=== PATIENT | female | born 1950 | race Caucasian/White ===

== ENCOUNTER 2018-10-21 07:02 | Day surgery (SDC) | payer MEDICARE, OTHER ==
[~2018-10-21 07:02] MED LIST: Lactated Ringers 1,000 ML IV SCH; Lidocaine 1%/Sod Bicarbonate in NS 8.4% 1 ML Syringe IDERM PRN; Midazolam 1 MG/ML 2 ML SDV ONE; Propofol 200 MG/20 ML SDV ONE; Sodium Chloride 0.9% 10 ML Syringe FLUSH PRN
--- NOTE | 2018-10-21 07:34 | PCM.PREANE ---
Preanesthetic Assessment - Anesthesia/Transfusion/Family Hx Anesthesia History: Prior Anesthesia Without Reaction Family History of Anesthesia Reaction: No Transfusion History: No Prior Transfusion(s) - Review of Systems General: Other (chronic sinus congestion, takes mucinex, chronic back pain) Pulmonary: Other (sleep apnea, marijuana last smoked 3 days ago) Cardiovascular: Palpitations, Other (echo 2018 EF 70%. EKG 65 1avb, CAD Increased BP, states has angina, goes away with rest.neg stress test in jul 2018 ) Gastrointestinal: Abdominal Pain Neurological: Numbness, Tingling (in hands), Other (fibromyalgia) Other: Reports: Thyroid Problems, Depression, Anxiety - Physical Assessment NPO Status Date: 10/20/18 NPO Status Time: 22:00 Pulse: 78 O2 Sat by Pulse Oximetry: 95 Respiratory Rate: 16 Blood Pressure: 139/84 Weight: 66.4 kg ASA Class: 3 Mental Status: Alert & Oriented x3 Airway Class: Mallampati = 2 Dentition: Reports: Normal Dentition Thyro-Mental Finger Breadths: 3 Mouth Opening Finger Breadths: 3 ROM/Head Extension: Full Lungs: Clear to Auscultation, Normal Respiratory Effort, Decreased Breath Sounds - Allergies Allergies/Adverse Reactions: Allergies Allergy/AdvReac Type Severity Reaction Status Date / Time clarithromycin [From Biaxin] Allergy Redness, Verified 10/18/18 11:32 Skin Concerns latex Allergy Redness, Verified 10/18/18 11:32 Rash metformin AdvReac Vomiting Verified 10/20/18 10:58 propoxyphene [From Darvon] AdvReac Nauseous Verified 10/20/18 10:58 sertraline AdvReac Dizzy, Off Verified 10/20/18 10:58 Balance - Blood Blood Available: No Product(s) Available: None - Anesthesia Plan Pre-Op Medication Ordered: None - Acknowledgements Anesthesia Type Planned: MAC Pt an Appropriate Candidate for the Planned Anesthesia: Yes Alternatives and Risks of Anesthesia Discussed w Pt/Guardian: Yes Pt/Guardian Understands and Agrees with Anesthesia Plan: Yes PreAnesthesia Questionnaire HEENT History: Reports: Impaired Vision, Sinusitis Other HEENT History: States she has had radiation for sinus concerns in the 1979. - Wears eye glasses. Cardiovascular History: Reports: Angina, CAD, Hypertension Respiratory History: Reports: Sleep Apnea, Other (See Below) Other Respiratory History: Hyperinflation, Emphysema. Chronic cough "with Losartan" as reported by patient. Gastrointestinal History: Reports: Diverticulosis, Other (See Below) Other Gastrointestinal History: Gallstone, Fatty Liver Genitourinary History: Reports: Other (See Below) Other Genitourinary History: "I have blood in my urine and probably have for one year". States she is following up with her urologist. Patient also reports Kidney Stones, Cervical Dysplasia, and Cyst on both kidneys. Musculoskeletal History: Reports: Back Pain, Chronic, Other (See Below) Other Musculoskeletal History: Fibromyalgia, Collar Bone Fracture to the Left, Right Ankle Fracture, Left Wrist Fracture Neurological History: Reports: Concussion, Head Trauma, Vertigo, Other (See Below) Other Neuro History: Patient reports "several head injuries". 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 Psychiatric History: Reports: Anxiety, Depression Endocrine/Metabolic History: Reports: Hypothyroidism Hematologic History: Reports: Anemia Oncologic (Cancer) History: Reports: Other (See Below) Other Oncologic History: Cervical Dysplasia "Level 4" -- No chemo or radiation, but did have hysterectomy. Dermatologic History: Reports: Eczema - Past Surgical History HEENT Surgical History: Reports: Tonsillectomy Cardiovascular Surgical History: Reports: Other (See Below) Other Cardiovascular Surgeries/Procedures: Heart Catheterization with 2 stents Respiratory Surgical History: Reports: None GI Surgical History: Reports: Appendectomy, Colon Female Surgical History: Reports: Hysterectomy Endocrine Surgical History: Reports: None Neurological Surgical History: Reports: None Musculoskeletal Surgical History: Reports: Other (See Below) Other Musculoskeletal Surgeries/Procedures:: Left Foot Surgery Oncologic Surgical History: Reports: None Dermatological Surgical History: Reports: None - SUBSTANCE USE Smoking Status *Q: Former Smoker Recreational Drug Use History: Yes Recreational Drug Type: Reports: Marijuana/Hashish - HOME MEDS Home Medications: Home Meds Ascorbic Acid [Vitamin C] 5,000 mg PO DAILY 10/18/18 [History] Aspirin [Low Dose Aspirin EC] 81 mg PO DAILY 10/18/18 [History] Biotin 2,000 mg PO DAILY 10/18/18 [History] Cholecalciferol (Vitamin D3) [Vitamin D3] 4,000 unit PO DAILY 10/18/18 [History] Cholecalciferol (Vitamin D3) [Vitamin D3] 4,000 unit PO DAILY 10/18/18 [History] Cyanocobalamin (Vitamin B-12) [Vitamin B12] 15,000 mcg PO DAILY 10/18/18 [ History] Cyclobenzaprine [Flexeril] 10 mg PO TID PRN 10/18/18 [History] Fluticasone Propionate [Flonase] 2 spray NASBOTH DAILY 10/18/18 [History] LORazepam 0.5 mg PO DAILY PRN 10/18/18 [History] Levothyroxine [Synthroid] 100 mcg PO DAILY 10/18/18 [History] Losartan [Cozaar] 50 mg PO DAILY 10/18/18 [History] Magnesium Oxide 250 mg PO DAILY 10/18/18 [History] Meloxicam [Mobic] 15 mg PO DAILY 10/18/18 [History] Mucous Relief Dm 1 tab PO BID PRN 10/18/18 [History] Multivitamin [Daily Multiple Vitamin] 1 tab PO DAILY 10/18/18 [History] Potassium 5 tab PO DAILY 10/18/18 [History] Rosuvastatin [Crestor] 10 mg PO BEDTIME 10/18/18 [History] Turmeric Root Extract [Turmeric Curcumin] 1 tab PO DAILY 10/18/18 [History] Ubidecarenone [Co Q-10] 100 mg PO DAILY 10/18/18 [History] Vitamin E 1,200 unit PO DAILY 10/18/18 [History] - CURRENT (IN HOUSE) MEDS Current Meds: Current Medications Lactated Ringer's (Ringers, Lactated) 1,000 mls @ 125 mls/hr IV ASDIRECTED BALBINA Stop: 10/21/18 23:00 Lidocaine/Sodium Bicarbonate (Buffered Lidocaine 1% In Ns 8.4%) 0.25 ml IDERM ONETIME PRN PRN Reason: Prior to IV Start Stop: 10/21/18 18:00 Sodium Chloride (Saline Flush) 10 ml FLUSH ASDIRECTED PRN PRN Reason: Keep Vein Open Stop: 10/21/18 18:00 Discontinued Medications Midazolam HCl (Versed 1 Mg/Ml) Confirm Administered Dose 2 mg .ROUTE .STK-MED ONE Stop: 10/21/18 06:58 Propofol (Diprivan 20 Ml) Confirm Administered Dose 400 mg .ROUTE .STK-MED ONE Stop: 10/21/18 06:58
[2018-10-21] MEDS ORDERED: Propofol 200 MG/20 ML SDV ONE (08:49)
--- NOTE | 2018-10-21 09:13 | PCM.OPNOTE ---
- General Post-Op/Procedure Note Date of Surgery/Procedure: 10/21/18 Operative Procedure(s): colonoscopy to cecum Pre Op Diagnosis: screening colonoscopy Post-Op Diagnosis: Same Anesthesia Technique: MAC Primary Surgeon: Florentin Jesus EBL in mLs: 0 Complications: None Condition: Good
--- NOTE | 2018-10-21 09:13 | PCM48HPAN ---
Post Anesthesia Note - EVALUATION WITHIN 48HRS OF ANESTHETIC Vital Signs in Normal Range: Yes Patient Participated in Evaluation: Yes Respiratory Function Stable: Yes Airway Patent: Yes Cardiovascular Function Stable: Yes Hydration Status Stable: Yes Pain Control Satisfactory: Yes Nausea and Vomiting Control Satisfactory: Yes Mental Status Recovered: Yes Pulse Rate: 64 SaO2: 99 Resp Rate: 16 Temperature: 36.7 C Blood Pressure: 132/80
--- NOTE | 2018-10-22 06:40 | OR ---
DATE OF OPERATION: 10/21/2018 SURGEON: Florentin Jesus MD PREOPERATIVE DIAGNOSIS: Screening colonoscopy. POSTOPERATIVE DIAGNOSIS: Screening colonoscopy. OPERATION PERFORMED: Colonoscopy to cecum. FINDINGS: Moderate sigmoid diverticulosis. There were no angiodysplasias, neoplasias, large tumor masses, ulcerations, or notable hemorrhoids. ANESTHESIA: Procedure done under IV sedation. RECOMMENDATION: Repeat colonoscopy in 10 years. DESCRIPTION OF PROCEDURE: The patient was taken to the endoscopy room, placed in a supine position, connected to monitoring equipment, given IV sedation. The patient placed in left lateral position. Perianal area was inspected and was normal. Rectal exam showed good sphincter tone. A video Olympus colonoscope was then introduced into the rectum and threaded up without problem to the cecum, where the appendicular orifice and ileocecal valve were noted. Prep was excellent. [place] Cleansing Score grade A. The scope was slowly withdrawn showing the cecum, ascending colon, transverse colon, descending colon, sigmoid colon, and rectum. The patient tolerated the procedure, sent to the recovery room in a stable condition, will be followed up as needed in the clinic. ESTIMATED BLOOD LOSS: MMODAL /[id number]
== END 2018-10-21 11:09 | disposition home or self-care (01) ==
LOC: JD.SDS 07:02
PROVIDERS: ATTEND Surgery
DX: Z12.11 Encounter for screening for malignant neoplasm of colon (principal); K57.30 Diverticulosis of large intestine without perforation or abscess without bleeding; I10 Essential (primary) hypertension; I25.10 Atherosclerotic heart disease of native coronary artery without angina pectoris; E03.9 Hypothyroidism, unspecified; E78.00 Pure hypercholesterolemia, unspecified; J43.9 Emphysema, unspecified; F41.9 Anxiety disorder, unspecified; F32.9 Major depressive disorder, single episode, unspecified; G47.30 Sleep apnea, unspecified; M79.7 Fibromyalgia; R73.03 Prediabetes; Z90.49 Acquired absence of other specified parts of digestive tract; Z88.8 Allergy status to other drugs, medicaments and biological substances; Z88.1 Allergy status to other antibiotic agents; Z91.040 Latex allergy status; Z95.5 Presence of coronary angioplasty implant and graft; Z87.891 Personal history of nicotine dependence; Z79.51 Long term (current) use of inhaled steroids; Z79.1 Long term (current) use of non-steroidal anti-inflammatories (NSAID); Z79.82 Long term (current) use of aspirin; Z79.899 Other long term (current) drug therapy
CPT/HCPCS: G0121; J2250; J2704; J7120

== ENCOUNTER 2019-08-27 13:20 | Emergency (ER) | payer MEDICARE, OTHER ==
--- NOTE | 2019-08-27 14:24 | EDM.PDOC ---
ED HPI GENERAL MEDICAL PROBLEM - General Chief Complaint: Chest Pain Stated Complaint: CHEST PAIN Time Seen by Provider: 08/27/19 14:18 Source of Information: Reports: Patient, Family (daughter) History Limitations: Reports: No Limitations - History of Present Illness INITIAL COMMENTS - FREE TEXT/NARRATIVE: 68-year-old female is a the ED with some precordial chest discomfort off and on for the last 2 days. He also felt like she was running a fever this morning and checked her temperature and found it to be 99.9. She did take some Tylenol for this. Of note the patient underwent triple bypass surgery on July 21 and did have 4 block vessels but they were only able to get at 311. She's had 2 previous stent placements in 2001. Her current medication list. She went to physiotherapy to work out at cardiac rehabilitation and they would not allow her to purchase a due to reports of chest pain until she was cleared from the ED. She is just doing lower extremity exercise program. She denies cough or sputum production. Denies sore throat. Denies any genitourinary complaints. She was constipated but did get her bowels working and they've been working quite regularly. He is currently sleeping half sitting up on pillows since her surgery. Doesn't think that she is any more short of breath than usual. She denies ever having a heart attack. Onset: Gradual (Aware of fever today she reports 99.9. Currently is 36.8 in the ED. Left precordial chest discomfort for the last 2 days), Other Duration: Intermittent ( more or less off and on.), Waxing/Waning Location: Reports: Chest (Left precordial chest discomfort for the last 2 days off and on.), Other (Spiked a fever of 99.9 this morning according to her thermometer at home.) Quality: Reports: Pressure Severity: Mild Improves with: Reports: None Worsens with: Reports: None Context: Reports: Other (Patient had triple bypass surgery carried out July 21 without complication.). Denies: Activity, Exercise, Lifting, Sick Contact, Trauma Associated Symptoms: Reports: Chest Pain (Occasional chest pain at the insertion site but left precordial chest discomfort for the last 2 days.), Malaise. Denies: Confusion ( She is currently in cardiac rehabilitation doing lower extremity exercises for the last 2 weeks.), Cough, cough w sputum, Diaphoresis, Fever/Chills, Headaches, Loss of Appetite, Nausea/Vomiting, Rash, Seizure, Shortness of Breath ( It's been more or less constant.), Syncope Treatments [employer]: Reports: Acetaminophen, Aspirin (For fever relief today. When every day.) Left Chest Pain Score (Numeric/FACES): 7 - Related Data Allergies Allergy/AdvReac Type Severity Reaction Status Date / Time clarithromycin [From Biaxin] Allergy Redness, Verified 08/27/19 13:33 Skin Concerns latex Allergy Redness, Verified 08/27/19 13:33 Rash metformin AdvReac Vomiting Verified 08/27/19 13:33 propoxyphene [From Darvon] AdvReac Nauseous Verified 08/27/19 13:33 sertraline AdvReac Dizzy, Off Verified 08/27/19 13:33 Balance Home Meds: Home Meds Ascorbic Acid [Vitamin C] 5,000 mg PO DAILY 10/18/18 [History] Aspirin [Low Dose Aspirin EC] 81 mg PO DAILY 10/18/18 [History] Biotin 2,000 mg PO DAILY 10/18/18 [History] Cholecalciferol (Vitamin D3) [Vitamin D3] 4,000 unit PO DAILY 10/18/18 [History] Cholecalciferol (Vitamin D3) [Vitamin D3] 4,000 unit PO DAILY 10/18/18 [History] Cyanocobalamin (Vitamin B-12) [Vitamin B12] 15,000 mcg PO DAILY 10/18/18 [ History] Cyclobenzaprine [Flexeril] 10 mg PO TID PRN 10/18/18 [History] Fluticasone Propionate [Flonase] 2 spray NASBOTH DAILY PRN 10/18/18 [History] LORazepam 0.5 mg PO DAILY PRN 10/18/18 [History] Levothyroxine [Synthroid] 100 mcg PO DAILY 10/18/18 [History] Losartan [Cozaar] 50 mg PO DAILY 10/18/18 [History] Magnesium Oxide 250 mg PO DAILY 10/18/18 [History] Meloxicam [Mobic] 15 mg PO DAILY 10/18/18 [History] Mucous Relief Dm 1 tab PO BID PRN 10/18/18 [History] Multivitamin [Daily Multiple Vitamin] 1 tab PO DAILY 10/18/18 [History] Potassium 5 tab PO DAILY 10/18/18 [History] Rosuvastatin [Crestor] 10 mg PO BEDTIME 10/18/18 [History] Turmeric Root Extract [Turmeric Curcumin] 1 tab PO DAILY 10/18/18 [History] Ubidecarenone [Co Q-10] 100 mg PO DAILY 10/18/18 [History] Vitamin E 1,200 unit PO DAILY 10/18/18 [History] Cefdinir [Omnicef] 300 mg PO BID #14 cap 08/27/19 [Rx] Furosemide [Lasix] 40 mg PO DAILY #30 tablet 08/27/19 [Rx] Magnesium Chloride [Slow-Mag] 71.5 mg PO BID #60 tablet.dr 08/27/19 [Rx] Potassium Chloride 20 meq PO DAILY #30 tablet.er 08/27/19 [Rx] Past Medical History HEENT History: Reports: Impaired Vision, Sinusitis Other HEENT History: States she has had radiation for sinus concerns in the 1979. - Wears eye glasses. Cardiovascular History: Reports: Angina, Bypass (2. Bypass surgery carried out June 2019. She was told she had 4 blockages but one was a minute not amenable to bypass.), CAD, High Cholesterol, Hypertension, Stents (2 stents placed in 2001. She denies CO prior to this.). Denies: Heart Failure, CO Respiratory History: Reports: Sleep Apnea, Other (See Below) Other Respiratory History: Hyperinflation, Emphysema. Chronic cough "with Losartan" as reported by patient. Gastrointestinal History: Reports: Diverticulosis, Other (See Below) Other Gastrointestinal History: Gallstone, Fatty Liver Genitourinary History: Reports: Other (See Below) Other Genitourinary History: "I have blood in my urine and probably have for one year". States she is following up with her urologist. Patient also reports Kidney Stones, Cervical Dysplasia, and Cyst on both kidneys. Musculoskeletal History: Reports: Back Pain, Chronic, Other (See Below) Other Musculoskeletal History: Fibromyalgia, Collar Bone Fracture to the Left, Right Ankle Fracture, Left Wrist Fracture Neurological History: Reports: Concussion, Head Trauma, Vertigo, Other (See Below) Other Neuro History: Patient reports "several head injuries". 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 Psychiatric History: Reports: Anxiety, Depression Endocrine/Metabolic History: Reports: Hypothyroidism Hematologic History: Reports: Anemia Oncologic (Cancer) History: Reports: Other (See Below) Other Oncologic History: Cervical Dysplasia "Level 4" -- No chemo or radiation, but did have hysterectomy. Dermatologic History: Reports: Eczema - Past Surgical History HEENT Surgical History: Reports: Tonsillectomy Cardiovascular Surgical History: Reports: Other (See Below) Other Cardiovascular Surgeries/Procedures: Heart Catheterization with 2 stents. triple bypass Jul 21 2019 Respiratory Surgical History: Reports: None GI Surgical History: Reports: Appendectomy, Colon Female Surgical History: Reports: Hysterectomy Endocrine Surgical History: Reports: None Neurological Surgical History: Reports: None Musculoskeletal Surgical History: Reports: Other (See Below) Other Musculoskeletal Surgeries/Procedures:: Left Foot Surgery Oncologic Surgical History: Reports: None Dermatological Surgical History: Reports: None Social & Family History - Caffeine Use Caffeine Use: Reports: Coffee Caffeine Use Comment: Coffee every morning. - Living Situation & Occupation Living situation: Reports: Single Occupation: Retired ED ROS GENERAL - Review of Systems Review Of Systems: See Below Constitutional: Reports: Fever, Chills (99.9 on her thermometer this morning.), Malaise, Weakness, Fatigue. Denies: Decreased Appetite, Weight Loss HEENT: Reports: Glasses Respiratory: Denies: Shortness of Breath, Wheezing, Pleuritic Chest Pain, Cough , Sputum Cardiovascular: Reports: Chest Pain, Blood Pressure Problem (Left precordial chest discomfort for the last 2 days.), Dyspnea on Exertion (Sometimes), Edema ( Vocational depending how long she's been sitting. She notes around her ankles). Denies: Claudication, Lightheadedness, Orthopnea Endocrine: Reports: Fatigue GI/Abdominal: Reports: Constipation : Reports: Frequency. Denies: Incontinence Musculoskeletal: Reports: No Symptoms, Other (Recovering from midline sternotomy incision with mild discomfort.) Skin: Reports: No Symptoms Neurological: Reports: No Symptoms Psychiatric: Reports: No Symptoms Hematologic/Lymphatic: Reports: No Symptoms Immunologic: Reports: No Symptoms ED EXAM, GENERAL - Physical Exam Exam: See Below General Appearance: Alert, WD/WN, No Apparent Distress, Other (Temperatures 36.8 at present. Pulse is 81 and sinuses pressured is 18 BP is 122/71 sats 95% on room air.) Eye Exam: Bilateral Eye: Normal Inspection Throat/Mouth: Normal Inspection, Normal Lips, Normal Teeth, Normal Oropharynx Head: Atraumatic, Normocephalic Neck: Normal Inspection, Supple, Non-Tender, Full Range of Motion. No: Lymphadenopathy (L), Lymphadenopathy (R) Respiratory/Chest: No Respiratory Distress, Lungs Clear, Normal Breath Sounds, No Accessory Muscle Use, Other (Midline sternotomy incision is healing up very well.) Cardiovascular: Normal Peripheral Pulses, Regular Rate, Rhythm, No Edema, No Gallop, No Murmur, No Rub Peripheral Pulses: 2+: Posterior Tibial (L), Posterior Tibial (R), Dorsalis Pedis (L), Dorsalis Pedis (R) GI/Abdominal: Normal Bowel Sounds, Soft, Non-Tender, No Organomegaly, No Mass, Pelvis Stable Back Exam: Normal Inspection, Full Range of Motion. No: CVA Tenderness (L), CVA Tenderness (R) Extremities: Normal Inspection, Normal Range of Motion, Non-Tender, No Pedal Edema Neurological: Alert, Oriented, CN II-XII Intact, Normal Cognition Psychiatric: Normal Affect, Normal Mood Skin Exam: Warm, Dry, Intact, Normal Color, No Rash EKG INTERPRETATION EKG Date: 08/27/19 Time: 01:30 Rhythm: NSR Rate (Beats/Min): 80 [place]: Normal P-Wave: Present QRS: Other (RSR prime wave in V1 to V3 compatible with right bundle branch block pattern with associated T-wave inversion from V1 to V6. Q waves in leads 3 and aVF compatible with an old inferior wall myocardial infarction.) ST-T: Other (T-wave inversion also noted in aVF and lead 2.) QT: Prolonged (Mildly prolonged.) EKG Interpretation Comments: Abnormal ECG Course - Vital Signs Last Recorded V/S: Last Vital Signs Temp 36.8 C 08/27/19 13:30 Pulse 81 08/27/19 13:30 Resp 18 08/27/19 13:30 BP 122/71 08/27/19 13:30 Pulse Ox 95 08/27/19 13:30 - Orders/Labs/Meds Orders: Active Orders 24 hr Category Date Time Status EKG 12 Lead [EKG Documentation Completion] [RC] STAT Care 08/27/19 13:48 Active EKG Documentation Completion [RC] STAT Care 12/04/19 14:20 Inactive Chest 1V Frontal [CR] Stat Exams 08/27/19 13:32 Taken DRUG SCREEN, URINE [URCHEM] Stat Lab 08/27/19 18:09 Ordered Labs: Laboratory Tests 08/27/19 08/27/19 08/27/19 Range/Units 13:39 13:39 13:39 WBC 7.38 (3.98-10.04) K/mm3 RBC 3.91 L (3.98-5.22) M/mm3 Hgb 11.4 (11.2-15.7) gm/dl Hct 35.9 (34.1-44.9) % MCV 91.8 (79.4-94.8) fl MCH 29.2 (25.6-32.2) pg MCHC 31.8 L (32.2-35.5) g/dl RDW Std Deviation 47.2 H (36.4-46.3) fL Plt Count 161 L (182-369) K/mm3 MPV 9.4 (9.4-12.3) fl Neut % (Auto) 79.3 H (34.0-71.1) % Lymph % (Auto) 10.2 L (19.3-51.7) % [place] % (Auto) 7.9 (4.7-12.5) % Eos % (Auto) 2.3 (0.7-5.8) Baso % (Auto) 0.3 (0.1-1.2) % Neut # (Auto) 5.86 (1.56-6.13) K/mm3 Lymph # (Auto) 0.75 L (1.18-3.74) K/mm3 [place] # (Auto) 0.58 H (0.24-0.36) K/mm3 Eos # (Auto) 0.17 (0.04-0.36) K/mm3 Baso # (Auto) 0.02 (0.01-0.08) K/mm3 PT 10.4 (9.7-12.0) SECONDS INR 0.95 APTT 26 (22-31) SECONDS Sodium 140 (136-145) mEq/L Potassium 3.5 (3.5-5.1) mEq/L Chloride 103 (98-107) mEq/L Carbon Dioxide 27 (21-32) mEq/L Anion Gap 13.5 (5-15) BUN 22 H (7-18) mg/dL Creatinine 1.1 H (0.55-1.02) mg/dL Est Cr Clr Drug Dosing 49.38 mL/min Estimated GFR (MDRD) 49 (>60) mL/min BUN/Creatinine Ratio 20.0 H (14-18) Glucose 166 H (80-115) mg/dL Calcium 8.7 (8.5-10.1) mg/dL Magnesium (1.8-2.4) mg/dl Total Bilirubin 0.8 (0.2-1.0) mg/dL AST 16 (15-37) U/L ALT 24 (14-59) U/L Alkaline Phosphatase 103 (46-116) U/L CK-MB (CK-2) (0-3.6) ng/ml Troponin I < 0.017 (0.00-0.056) ng/mL C-Reactive Protein (<1.0) mg/dL NT-Pro-B Natriuret Pep (0-125) pg/mL Total Protein 7.5 (6.4-8.2) g/dl Albumin 3.7 (3.4-5.0) g/dl Globulin 3.8 gm/dL Albumin/Globulin Ratio 1.0 (1-2) Urine Color (Yellow) Urine Appearance (Clear) Urine pH (5.0-8.0) Ur Specific [place] (1.005-1.030) Urine Protein (Negative) Urine Glucose (UA) (Negative) Urine Ketones (Negative) Urine Occult Blood (Negative) Urine Nitrite (Negative) Urine Bilirubin (Negative) Urine Urobilinogen (0.2-1.0) Ur Leukocyte Esterase (Negative) Urine RBC (0-5) /hpf Urine WBC (0-5) /hpf Ur Epithelial Cells (0-5) /hpf Calcium Oxalate Crystal (NONE) Urine Bacteria (FEW) /hpf Urine Mucus (FEW) /hpf 08/27/19 08/27/19 08/27/19 Range/Units 13:39 13:39 15:09 WBC (3.98-10.04) K/mm3 RBC (3.98-5.22) M/mm3 Hgb (11.2-15.7) gm/dl Hct (34.1-44.9) % MCV (79.4-94.8) fl MCH (25.6-32.2) pg MCHC (32.2-35.5) g/dl RDW Std Deviation (36.4-46.3) fL Plt Count (182-369) K/mm3 MPV (9.4-12.3) fl Neut % (Auto) (34.0-71.1) % Lymph % (Auto) (19.3-51.7) % [place] % (Auto) (4.7-12.5) % Eos % (Auto) (0.7-5.8) Baso % (Auto) (0.1-1.2) % Neut # (Auto) (1.56-6.13) K/mm3 Lymph # (Auto) (1.18-3.74) K/mm3 [place] # (Auto) (0.24-0.36) K/mm3 Eos # (Auto) (0.04-0.36) K/mm3 Baso # (Auto) (0.01-0.08) K/mm3 PT (9.7-12.0) SECONDS INR APTT (22-31) SECONDS Sodium (136-145) mEq/L Potassium (3.5-5.1) mEq/L Chloride (98-107) mEq/L Carbon Dioxide (21-32) mEq/L Anion Gap (5-15) BUN (7-18) mg/dL Creatinine (0.55-1.02) mg/dL Est Cr Clr Drug Dosing mL/min Estimated GFR (MDRD) (>60) mL/min BUN/Creatinine Ratio (14-18) Glucose (80-115) mg/dL Calcium (8.5-10.1) mg/dL Magnesium 1.6 L (1.8-2.4) mg/dl Total Bilirubin (0.2-1.0) mg/dL AST (15-37) U/L ALT (14-59) U/L Alkaline Phosphatase (46-116) U/L CK-MB (CK-2) < 0.5 (0-3.6) ng/ml Troponin I (0.00-0.056) ng/mL C-Reactive Protein 9.9 H* (<1.0) mg/dL NT-Pro-B Natriuret Pep 829 H (0-125) pg/mL Total Protein (6.4-8.2) g/dl Albumin (3.4-5.0) g/dl Globulin gm/dL Albumin/Globulin Ratio (1-2) Urine Color Dark yellow (Yellow) Urine Appearance Cloudy H (Clear) Urine pH 6.0 (5.0-8.0) Ur Specific [place] > or = 1.030 (1.005-1.030) Urine Protein 2+ H (Negative) Urine Glucose (UA) Negative (Negative) Urine Ketones Trace H (Negative) Urine Occult Blood 3+ H (Negative) Urine Nitrite Positive H (Negative) Urine Bilirubin 1+ H (Negative) Urine Urobilinogen 0.2 (0.2-1.0) Ur Leukocyte Esterase 1+ H (Negative) Urine RBC 30-40 H (0-5) /hpf Urine WBC 75-100 H (0-5) /hpf Ur Epithelial Cells 5-10 H (0-5) /hpf Calcium Oxalate Crystal Moderate H (NONE) Urine Bacteria Many H (FEW) /hpf Urine Mucus Not seen (FEW) /hpf Meds: Medications Discontinued Medications Generic Name Dose Route Start Last Admin Trade Name Freq PRN Reason Stop Dose Admin Furosemide 40 mg 08/27/19 15:48 08/27/19 15:58 Lasix PO 08/27/19 15:49 40 mg ONETIME ONE Administration - Radiology Interpretation Free Text/Narrative:: 68-year-old female presents to the ED with family members. She was to attend cardiac rehabilitation today but didn't feel well enough and reported to them that she drinks pain similar left precordial chest discomfort for the last 2 days. She had triple bypass surgery carried out July 21. For that she had 2 stents placed for coronary disease. She is no longer on Plavix she is only on baby aspirin daily. She denies feeling any more dyspneic than usual. She states this morning she spiked a temperature of 99.9 and took at acetaminophen for this. Currently she is afebrile in the ED. Lungs are clear to stage percussion no signs of infection were identified. ECG shows signs of old inferior wall myocardial infarction and a chronic right bundle branch block with T-wave inversion from V1 to the 5. Cannot rule out ischemia without another ECG to compare to. Plan she will have routine cardiac markers done routine labs including BMP and magnesium level. Chest x-ray as well. Urinalysis as well. - Re-Assessments/Exams Free Text/Narrative Re-Assessment/Exam: 08/27/19 14:35 chest x-ray shows normal cardiac silhouette. Slightly tortuous thoracic aorta. There appears to be some mild diffuse vascular congestion pattern. No pleural effusions evident. 08/27/19 15:43 White count is 7.38 auto differential is 79.3% neutrophils. Hemoglobin is 11.4 and hematocrit of 35.9 platelet count 161,000. PT is 10.4 with an INR of 0.95 PTT is 26. Sodium 140 with potassium of 3.5. Chloride 103 with a bicarbonate 27. Anion gap is 13.5 B1 is 22 with a creatinine of 1.1. Estimated GFR is 49. Glucose is 166 with a calcium of 8.7. Magnesium is slightly low at 1.6. Liver function is normal. CK-MB fraction is 0. Less than 0.5 more denies less than 0.017 C-reactive protein is 9.9 BNP is slightly elevated at 829 total protein is 7.5 with an albumin fraction of 3.7. So far she 's been unable to void. Going to give her Lasix 40 mg by mouth for her elevated BNP she claims that she did have a transient fever this morning. She's now complaining of some mild backache. Urinary tract infection needs to be ruled out. Her CRP is 9.9 and her differential suggests 80% neutrophils suggesting that she does have an underlying infective process. 08/27/19 18:22 Urinalysis is positive for infection. It is cloudy with 2+ proteinuria trace of ketones 3+ occult blood positive nitrates 1+ bilirubin and 1+ leukocyte esterase. There are 30-40 RBCs per high-power field and 75-100 WBCs per high-power field. I've to 10 epithelial cells suggesting upper infection. Moderate oxalate crystals and many bacteria. Urine culture has been ordered. Discussed the findings with the patient and the plan will be to place her on Bactrim double strength 1 tablet twice daily for the next 7 days. Departure - Departure Time of Disposition: 18:22 Disposition: Home, Self-Care 01 Condition: Fair Clinical Impression: Mild congestive heart failure, Hypomagnesemia, Hypokalemia Urinary tract infection Qualifiers: Urinary tract infection type: acute cystitis Prescriptions: Cefdinir [Omnicef] 300 mg PO BID #14 cap Furosemide [Lasix] 40 mg PO DAILY #30 tablet Magnesium Chloride [Slow-Mag] 71.5 mg PO BID #60 tablet. Potassium Chloride 20 meq PO DAILY #30 tablet.er Referrals: Micheline Angulo MD [Primary Care Provider] - Forms: ED Department Discharge Additional Instructions: Evaluation in the emergency him today in regards to some left-sided chest pains off and on over the last 2 days. An open heart surgery July 21 with triple bypass surgery. Lab work proved that there is some excessive fluid buildup in your lungs which we call mild congestive heart failure and is not unexpected after having open heart surgery. It is bad enough to require a diuretic or Lasix tablet 40 mg once daily every morning for the next couple of weeks and then have recheck to see if you need to continue it or not or we can reduce it to 20 mg daily. Expect makes the kidneys waste potassium and your potassium is already low normal at 3.5. You therefore need a potassium supplement called Slow -K 20 mg once daily usually in the morning. You found to have a low-grade fever for you recognized a spike in temperature and lab work finally showed a urinalysis that is positive for infection. You will need to take antibiotic Omnicef 300 mg twice daily for the next 7 days to clear up this infection. You also found to have a low serum magnesium level at 1.6. Magnesium is important for heart function. I therefore wrote a prescription for magnesium supplement called Slow-Mag one tablet twice daily. It is important to take your antibiotics at a completely different time than you take your potassium or magnesium supplement. At least a good hour to an hour and a half apart. No more physiotherapy her cardiac rehabilitation until Sunday next week. Follow-up with your personal care physician in 7 days time for repeat labs on kidney function and heart function. - My Orders Last 24 Hours: My Active Orders 08/27/19 13:32 Chest 1V Frontal [CR] Stat 08/27/19 13:48 EKG 12 Lead [EKG Documentation Completion] [RC] STAT 08/27/19 14:20 EKG Documentation Completion [RC] STAT 08/27/19 18:09 DRUG SCREEN, URINE [URCHEM] Stat - Assessment/Plan Last 24 Hours: My Active Orders 08/27/19 13:32 Chest 1V Frontal [CR] Stat 08/27/19 13:48 EKG 12 Lead [EKG Documentation Completion] [RC] STAT 08/27/19 14:20 EKG Documentation Completion [RC] STAT 08/27/19 18:09 DRUG SCREEN, URINE [URCHEM] Stat
[2019-08-27] MEDS ORDERED: Furosemide 40 MG Tab PO ONE (15:48)
--- NOTE | 2019-09-01 06:34 | CR ---
Chest: Portable view of the chest was obtained. Comparison: No prior chest x-ray. Heart size is normal. Tortuous thoracic aorta is seen. Lungs are clear with no acute parenchymal change. Previous sternotomy is noted. Deformity of the left clavicle from old healed fracture is noted. Impression: 1. Nothing acute is seen on portable chest x-ray. Diagnostic code #2 This report was dictated in [place] Standard Time
== END 2019-08-27 19:05 | disposition home or self-care (01) ==
LOC: JD.ED 13:20
DX: I11.0 Hypertensive heart disease with heart failure (principal); I50.9 Heart failure, unspecified; E83.42 Hypomagnesemia; E87.6 Hypokalemia; N30.00 Acute cystitis without hematuria; I25.10 Atherosclerotic heart disease of native coronary artery without angina pectoris; E78.00 Pure hypercholesterolemia, unspecified; J43.9 Emphysema, unspecified; E03.9 Hypothyroidism, unspecified; F41.9 Anxiety disorder, unspecified; Z88.5 Allergy status to narcotic agent; Z88.8 Allergy status to other drugs, medicaments and biological substances; Z91.040 Latex allergy status; Z88.1 Allergy status to other antibiotic agents; Z79.899 Other long term (current) drug therapy; Z79.82 Long term (current) use of aspirin; Z79.890 Hormone replacement therapy; Z95.1 Presence of aortocoronary bypass graft; Z95.5 Presence of coronary angioplasty implant and graft
CPT/HCPCS: 36415; 71045; 80053; 80306; 81001; 82553; 83735; 83880; 84484; 85025; 85610; 85730; 86140; 87086; 87088; 87186; 93005; 99285; A9270; 93010; 99284

== ENCOUNTER 2021-08-25 12:15 | Emergency (ER) | payer MEDICARE, OTHER ==
[2021-08-25] MEDS ORDERED: Sodium Chloride 0.9% 10 ML Syringe FLUSH PRN (12:42)
[2021-08-25] MEDS ORDERED: Sodium Chloride 0.9% 500 ML IV ONE (13:24)
--- NOTE | 2021-08-25 13:35 | CR ---
Chest: Portable view of the chest was obtained. Comparison: Prior chest x-ray of 08/27/19. Heart size and mediastinum are within normal limits. Tortuous thoracic aorta is seen. Nodular density is identified within the left mid chest measuring 1.0 cm which is an interval change from prior exam. Lungs otherwise are clear. Prior sternotomy is noted for prior CABG. Scoliosis is noted within the spine with mild degenerative change. Old left clavicle fracture is seen. Impression: 1. 1.0 cm nodule within the left mid chest. Noncontrast chest CT study is strongly recommended to further evaluate. 2. Other findings as noted above. Nothing acute is otherwise seen. Diagnostic code #9
[2021-08-25] MEDS ORDERED: Potassium Chloride 20 MEQ Tab.ER PO ONE (14:01)
[2021-08-25] MEDS ORDERED: Magnesium Oxide 400 MG Tab PO ONE (14:01)
--- NOTE | 2021-08-25 14:11 | EDM.PDOC ---
ED HPI GENERAL MEDICAL PROBLEM - General Chief Complaint: Chest Pain Stated Complaint: SOB\\CHEST PAIN SENT FROM [place] Time Seen by Provider: 08/25/21 12:41 Source of Information: Reports: Patient History Limitations: Reports: No Limitations - History of Present Illness INITIAL COMMENTS - FREE TEXT/NARRATIVE: 70-year-old female presents the emergency room today after being evaluated at the walk-in clinic. Patient states that she has not had much in the way of an appetite for the past 7 days. She states that starting 4 days ago she developed intermittent stabbing chest discomfort to her left chest area. She states she is also having stabbing left shoulder pain. She states she has had fever as high as 103 however has not had fever in the past 24 hours. She states that she wakes up in the morning drenched in sweat. She is unable to lay flat while sleeping. She has to be propped up on pillows. She does have a history of congestive heart failure. She has more shortness of breath with any and all exertion. She states that she recently had 3 stents placed for kidney stone on the left side. This procedure was completed 1 week ago. She states that over the past 2 days she has had increased frequency and voiding and suprapubic tenderness and discomfort. She did have her [employer] Covid vaccine in February 2021. Other Treatments [facility]AT[facility] ASST: on baby aspirin daily and did not take today Left Chest Pain Score (Numeric/FACES): 9 - Related Data Allergies Allergy/AdvReac Type Severity Reaction Status Date / Time clarithromycin [From Biaxin] Allergy Redness, Verified 08/27/19 13:33 Skin Concerns latex Allergy Redness, Verified 08/27/19 13:33 Rash metformin AdvReac Vomiting Verified 08/27/19 13:33 propoxyphene [From Darvon] AdvReac Nauseous Verified 08/27/19 13:33 sertraline AdvReac Dizzy, Off Verified 08/27/19 13:33 Balance Home Meds: Home Meds Ascorbic Acid [Vitamin C] 5,000 mg PO DAILY 10/18/18 [History] Aspirin [Low Dose Aspirin EC] 81 mg PO DAILY 10/18/18 [History] Biotin 2,000 mg PO DAILY 10/18/18 [History] Cholecalciferol (Vitamin D3) [Vitamin D3] 4,000 unit PO DAILY 10/18/18 [History] Cholecalciferol (Vitamin D3) [Vitamin D3] 4,000 unit PO DAILY 10/18/18 [History] Cyanocobalamin (Vitamin B-12) [Vitamin B12] 15,000 mcg PO DAILY 10/18/18 [History] Cyclobenzaprine [Flexeril] 10 mg PO TID PRN 10/18/18 [History] Fluticasone Propionate [Flonase] 2 spray NASBOTH DAILY PRN 10/18/18 [History] LORazepam 0.5 mg PO DAILY PRN 10/18/18 [History] Levothyroxine [Synthroid] 100 mcg PO DAILY 10/18/18 [History] Losartan [Cozaar] 50 mg PO DAILY 10/18/18 [History] Magnesium Oxide [Magnesium] 250 mg PO DAILY 10/18/18 [History] Meloxicam [Mobic] 15 mg PO DAILY 10/18/18 [History] Mucous Relief Dm 1 tab PO BID PRN 10/18/18 [History] Multivitamin [Daily Multiple Vitamin] 1 tab PO DAILY 10/18/18 [History] Potassium 5 tab PO DAILY 10/18/18 [History] Rosuvastatin [Crestor] 10 mg PO BEDTIME 10/18/18 [History] Turmeric Root Extract [Turmeric Curcumin] 1 tab PO DAILY 10/18/18 [History] Ubidecarenone [Co Q-10] 100 mg PO DAILY 10/18/18 [History] Vitamin E 1,200 unit PO DAILY 10/18/18 [History] Cefdinir [Omnicef] 300 mg PO BID #14 cap 08/27/19 [Rx] Furosemide [Lasix] 40 mg PO DAILY #30 tablet 08/27/19 [Rx] Magnesium Chloride [Slow-Mag] 71.5 mg PO BID #60 tablet.dr 08/27/19 [Rx] Potassium Chloride 20 meq PO DAILY #30 tablet.er 08/27/19 [Rx] Cefdinir [Omnicef] 300 mg PO BID #9 cap 08/25/21 [Rx] Past Medical History HEENT History: Reports: Impaired Vision, Sinusitis Other HEENT History: States she has had radiation for sinus concerns in the . - Wears eye glasses. Cardiovascular History: Reports: Angina, Bypass (2. Bypass surgery carried out June 2019. She was told she had 4 blockages but one was a minute not amenable to bypass.), CAD, High Cholesterol, Hypertension, Stents (2 stents placed in 2001. She denies MA prior to this.). Denies: Heart Failure, MA Respiratory History: Reports: Sleep Apnea, Other (See Below) Other Respiratory History: Hyperinflation, Emphysema. Chronic cough "with Losartan" as reported by patient. Gastrointestinal History: Reports: Diverticulosis, Other (See Below) Other Gastrointestinal History: Gallstone, Fatty Liver Genitourinary History: Reports: Other (See Below) Other Genitourinary History: "I have blood in my urine and probably have for one year". States she is following up with her urologist. Patient also reports Kidney Stones, Cervical Dysplasia, and Cyst on both kidneys. Musculoskeletal History: Reports: Back Pain, Chronic, Other (See Below) Other Musculoskeletal History: Fibromyalgia, Collar Bone Fracture to the Left, Right Ankle Fracture, Left Wrist Fracture Neurological History: Reports: Concussion, Head Trauma, Vertigo, Other (See Below) Other Neuro History: Patient reports "several head injuries". 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 Psychiatric History: Reports: Anxiety, Depression Endocrine/Metabolic History: Reports: Hypothyroidism Hematologic History: Reports: Anemia Oncologic (Cancer) History: Reports: Other (See Below) Other Oncologic History: Cervical Dysplasia "Level 4" -- No chemo or radiation, but did have hysterectomy. Dermatologic History: Reports: Eczema - Past Surgical History HEENT Surgical History: Reports: Tonsillectomy Cardiovascular Surgical History: Reports: Other (See Below) Other Cardiovascular Surgeries/Procedures: Heart Catheterization with 2 stents. triple bypass Jul 21 2019 Respiratory Surgical History: Reports: None GI Surgical History: Reports: Appendectomy, Colon Female Surgical History: Reports: Hysterectomy Endocrine Surgical History: Reports: None Neurological Surgical History: Reports: None Musculoskeletal Surgical History: Reports: Other (See Below) Other Musculoskeletal Surgeries/Procedures:: Left Foot Surgery Oncologic Surgical History: Reports: None Dermatological Surgical History: Reports: None Social & Family History - Caffeine Use Caffeine Use: Reports: Coffee Caffeine Use Comment: Coffee every morning. - Living Situation & Occupation Living situation: Reports: Single Occupation: Retired ED ROS GENERAL - Review of Systems Review Of Systems: Comprehensive ROS is negative, except as noted in HPI. ED EXAM, GENERAL - Physical Exam Exam: See Below Exam Limited By: No Limitations General Appearance: Alert, WD/WN, Mild Distress Ears: Normal External Exam, Hearing Grossly Normal Nose: Normal Inspection Throat/Mouth: Normal Inspection, Normal Lips, Normal Voice, No Airway Compromise Head: Atraumatic Neck: Normal Inspection, Supple Respiratory/Chest: No Respiratory Distress, Lungs Clear, Normal Breath Sounds, No Accessory Muscle Use, Chest Non-Tender Cardiovascular: Normal Peripheral Pulses, Regular Rate, Rhythm, No Edema, No Murmur Peripheral Pulses: 2+: Radial (L), Radial (R) GI/Abdominal: Normal Bowel Sounds, Soft, No Distention, Tender (Suprapubic tenderness) (Female) Exam: Deferred Rectal (Female) Exam: Deferred Back Exam: Normal Inspection Extremities: Normal Inspection, Normal Range of Motion, Non-Tender, No Pedal Edema, Normal Capillary Refill Neurological: Alert, Oriented, Normal Cognition, Normal Reflexes Psychiatric: Normal Affect, Normal Mood Skin Exam: Warm, Dry, Intact, Normal Color, No Rash Lymphatic: No Adenopathy #1 Interpretation EKG Date: 08/25/21 Time: 12:44 Rhythm: NSR Rate (Beats/Min): 80 [place]: Normal P-Wave: Present QRS: RBBB ST-T: Normal QT: Normal EKG Interpretation Comments: Per Dr. Adler interpretation: Accelerated junctional versus A. fib versus sinus; no clear P waves; inverted T waves to 3 and precordial artifact Course - Vital Signs Text/Narrative:: As stated above, patient presents with approximately 1 week history of decreased appetite, fever, suprapubic tenderness with associated urinary frequency, recent stents placed in left ureter as well as chest pain. Physical exam reveals a ill-appearing elderly white female. She is dyspneic on exertion. O2 saturations are 98% on room air however. Lung sounds are clear to auscultation bilaterally. Patient does have suprapubic tenderness noted with palpation. Mucous membranes are extremely dry. Patient states she has been attempting to drink as much fluid as possible. Will obtain a full cardiac work-up to include an EKG, portable chest x-ray, CBC, CMP, magnesium level, D-dimer, C-reactive protein, troponin and proBNP. We will also obtain a urinalysis with micro and culture if indicated and a Covid swab. Patient will be given 250 mL of normal saline until I have the results back from her chest x-ray and proBNP as she does have a history of heart failure. Will also medicate the patient with Tylenol. Last Recorded V/S: Last Vital Signs Temp 97.3 F 08/25/21 12:35 Pulse 84 08/25/21 12:35 Resp 20 08/25/21 12:35 BP 128/77 08/25/21 12:35 Pulse Ox 99 08/25/21 12:35 - Orders/Labs/Meds Orders: Active Orders 24 hr Category Date Time Status CORONAVIRUS COVID-19 CASSIDY [MOLEC] Stat Lab 08/25/21 16:05 Received CULTURE URINE [MREF] Stat Lab 08/25/21 14:35 Received Sodium Chloride 0.9% [Saline Flush] Med 08/25/21 12:42 Active 10 ml FLUSH ASDIRECTED PRN Saline Lock Insert [OM.PC] Stat Oth 08/25/21 12:42 Ordered Medication Orders Sodium Chloride (Sodium Chloride 0.9% 10 Ml Syringe) 10 ml FLUSH ASDIRECTED PRN PRN Reason: Keep Vein Open Last Admin: 08/25/21 14:02 Dose: 10 ml Documented by: BRENDA Labs: Laboratory Tests 08/25/21 08/25/21 08/25/21 Range/Units 12:53 12:53 12:53 WBC 6.60 (3.98-10.04) K/mm3 RBC 4.49 (3.98-5.22) M/mm3 Hgb 13.0 D (11.2-15.7) gm/dl Hct 40.7 (34.1-44.9) % MCV 90.6 (79.4-94.8) fl MCH 29.0 (25.6-32.2) pg MCHC 31.9 L (32.2-35.5) g/dl RDW Std Deviation 48.0 H (36.4-46.3) fL Plt Count 256 D (182-369) K/mm3 MPV 9.7 (9.4-12.3) fl Neut % (Auto) 72.0 H (34.0-71.1) % Lymph % (Auto) 14.2 L (19.3-51.7) % [place] % (Auto) 11.8 (4.7-12.5) % Eos % (Auto) 1.2 (0.7-5.8) Baso % (Auto) 0.6 (0.1-1.2) % Neut # (Auto) 4.75 (1.56-6.13) K/mm3 Lymph # (Auto) 0.94 L (1.18-3.74) K/mm3 [place] # (Auto) 0.78 H (0.24-0.36) K/mm3 Eos # (Auto) 0.08 (0.04-0.36) K/mm3 Baso # (Auto) 0.04 (0.01-0.08) K/mm3 D-Dimer, Quantitative 0.77 H (0.19-0.50) mg/L Sodium 141 (136-145) mEq/L Potassium 3.2 L (3.5-5.1) mEq/L Chloride 99 (98-107) mEq/L Carbon Dioxide 28 (21-32) mEq/L Anion Gap 17.2 H (5-15) BUN 19 H (7-18) mg/dL Creatinine 1.4 H (0.55-1.02) mg/dL Est Cr Clr Drug Dosing 37.72 mL/min Estimated GFR (MDRD) 37 (>60) mL/min BUN/Creatinine Ratio 13.6 L (14-18) Glucose 135 H (70-99) mg/dL Calcium 9.3 (8.5-10.1) mg/dL Magnesium 1.6 L (1.8-2.4) mg/dL Total Bilirubin 0.7 (0.2-1.0) mg/dL AST 14 L (15-37) U/L ALT 18 (14-59) U/L Alkaline Phosphatase 99 (46-116) U/L Troponin I < 0.017 (0.00-0.056) ng/mL C-Reactive Protein 23.3 H* (<1.0) mg/dL NT-Pro-B Natriuret Pep (0-125) pg/mL Total Protein 8.2 (6.4-8.2) g/dl Albumin 3.3 L (3.4-5.0) g/dl Globulin 4.9 gm/dL Albumin/Globulin Ratio 0.7 L (1-2) Urine Color (Yellow) Urine Appearance (Clear) Urine pH (5.0-8.0) Ur Specific [place] (1.005-1.030) Urine Protein (Negative) Urine Glucose (UA) (Negative) Urine Ketones (Negative) Urine Occult Blood (Negative) Urine Nitrite (Negative) Urine Bilirubin (Negative) Urine Urobilinogen (0.2-1.0) Ur Leukocyte Esterase (Negative) Urine RBC (0-5) /hpf Urine WBC (0-5) /hpf Ur Squamous Epith Cells (0-5) /hpf Amorphous Sediment (NOT SEEN) /hpf Urine Bacteria (FEW) /hpf Urine Mucus (FEW) /hpf Urine Yeast (Budding) (NOT SEEN) 08/25/21 08/25/21 Range/Units 12:53 14:35 WBC (3.98-10.04) K/mm3 RBC (3.98-5.22) M/mm3 Hgb (11.2-15.7) gm/dl Hct (34.1-44.9) % MCV (79.4-94.8) fl MCH (25.6-32.2) pg MCHC (32.2-35.5) g/dl RDW Std Deviation (36.4-46.3) fL Plt Count (182-369) K/mm3 MPV (9.4-12.3) fl Neut % (Auto) (34.0-71.1) % Lymph % (Auto) (19.3-51.7) % [place] % (Auto) (4.7-12.5) % Eos % (Auto) (0.7-5.8) Baso % (Auto) (0.1-1.2) % Neut # (Auto) (1.56-6.13) K/mm3 Lymph # (Auto) (1.18-3.74) K/mm3 [place] # (Auto) (0.24-0.36) K/mm3 Eos # (Auto) (0.04-0.36) K/mm3 Baso # (Auto) (0.01-0.08) K/mm3 D-Dimer, Quantitative (0.19-0.50) mg/L Sodium (136-145) mEq/L Potassium (3.5-5.1) mEq/L Chloride (98-107) mEq/L Carbon Dioxide (21-32) mEq/L Anion Gap (5-15) BUN (7-18) mg/dL Creatinine (0.55-1.02) mg/dL Est Cr Clr Drug Dosing mL/min Estimated GFR (MDRD) (>60) mL/min BUN/Creatinine Ratio (14-18) Glucose (70-99) mg/dL Calcium (8.5-10.1) mg/dL Magnesium (1.8-2.4) mg/dL Total Bilirubin (0.2-1.0) mg/dL AST (15-37) U/L ALT (14-59) U/L Alkaline Phosphatase (46-116) U/L Troponin I (0.00-0.056) ng/mL C-Reactive Protein (<1.0) mg/dL NT-Pro-B Natriuret Pep 279 H (0-125) pg/mL Total Protein (6.4-8.2) g/dl Albumin (3.4-5.0) g/dl Globulin gm/dL Albumin/Globulin Ratio (1-2) Urine Color Dark yellow (Yellow) Urine Appearance Cloudy H (Clear) Urine pH 5.5 (5.0-8.0) Ur Specific [place] > or = 1.030 (1.005-1.030) Urine Protein 3+ H (Negative) Urine Glucose (UA) Negative (Negative) Urine Ketones Trace H (Negative) Urine Occult Blood 3+ H (Negative) Urine Nitrite Negative (Negative) Urine Bilirubin 1+ H (Negative) Urine Urobilinogen 1.0 (0.2-1.0) Ur Leukocyte Esterase 2+ H (Negative) Urine RBC 75-100 H (0-5) /hpf Urine WBC 40-50 H (0-5) /hpf Ur Squamous Epith Cells 5-10 H (0-5) /hpf Amorphous Sediment Few H (NOT SEEN) /hpf Urine Bacteria Moderate H (FEW) /hpf Urine Mucus Few (FEW) /hpf Urine Yeast (Budding) Few H (NOT SEEN) Meds: Medications Generic Name Dose Route Start Last Admin Trade Name Freq PRN Reason Stop Dose Admin Sodium Chloride 10 ml 08/25/21 12:42 08/25/21 14:02 Sodium Chloride 0.9% 10 Ml Syringe FLUSH 10 ml ASDIRECTED PRN Administration Keep Vein Open Discontinued Medications Generic Name Dose Route Start Last Admin Trade Name Freq PRN Reason Stop Dose Admin Acetaminophen 650 mg 08/25/21 15:37 Acetaminophen 325 Mg Tab PO 08/25/21 15:38 NOW ONE Cefdinir 300 mg 08/25/21 15:37 Cefdinir 300 Mg Cap PO 08/25/21 15:38 ONETIME ONE Sodium Chloride 500 mls @ 250 mls/hr 08/25/21 13:24 08/25/21 14:12 Normal Saline IV 08/25/21 15:23 250 mls/hr .BOLUS ONE Administration Magnesium Oxide 400 mg 08/25/21 14:01 08/25/21 14:11 Magnesium Oxide 400 Mg Tab PO 08/25/21 14:02 400 mg ONETIME ONE Administration Potassium Chloride 40 meq 08/25/21 14:01 08/25/21 14:10 Potassium Chloride 20 Meq Tab.Er PO 08/25/21 14:02 40 meq ONETIME ONE Administration - Re-Assessments/Exams Free Text/Narrative Re-Assessment/Exam: 08/25/21 14:24 Hematology reveals a WBC of 6.60, hemoglobin 13.0, hematocrit 40.7, platelet count 256 Coagulation reveals a D-dimer of 0.77 Chemistry reveals a sodium of 141, potassium 3.2, chloride 99, carbon dioxide 28, anion gap 17.2, BUN 19, creatinine 1.4, GFR 37, glucose 135, magnesium 1.6, total bilirubin 0.7, AST 14, ALT 18, troponin less than 0.017, C-reactive protein 23.3, proBNP 279 Patient will be given 40 mEq potassium p.o. as well as 400 mg mag oxide. Radiologist impression portable view of the chest: Heart size and mediastinum are within normal limits. Tortuous thoracic aorta is seen. Nodular density is identified within the left mid chest measuring 1.0 cm which is an interval change from prior exam. Lungs otherwise are clear. Prior sternotomy is noted for prior CABG. Scoliosis is noted within the spine with mild degenerative change. Old left clavicle fracture is seen. Impression: 1. 1.0 cm nodule within left mid chest. Noncontrast chest CT study is strongly recommended to further evaluate. 2. Other findings as noted above. Nothing acute is otherwise seen. 08/25/21 15:36 Urinalysis reveals 3+ protein, trace ketones, 3+ occult blood, nitrate negative, urine bilirubin 1+, leukocyte Estrace 2+, urine RBC 75-100, urine WBC 40-50, urine squamous epithelial cells 5-10, Morphis sediment few, urine bacteria moderate Patient will be given Omnicef 300 mg x 1 dose now. We will also give her Tylenol 650 mg p.o. for complaints of headache. 08/25/21 16:18 Discussed lab studies and chest x-ray results with the patient and her daughter. Patient will be discharged home. We will send a prescription for Omnicef to her pharmacy. Patient will then follow-up with her primary care provider in 1 week's time to reevaluate urinalysis as well as follow-up for nodular density in the chest. Covid swab has only just now been collected. Will call the patient with the results. Departure - Departure Time of Disposition: 16:20 Disposition: Home, Self-Care 01 Condition: Good Clinical Impression: Hypokalemia, Hypomagnesemia UTI (urinary tract infection) Qualifiers: Urinary tract infection type: acute cystitis Hematuria presence: with hematuria Qualified Code(s): N30.01 - Acute cystitis with hematuria Prescriptions: Cefdinir [Omnicef] 300 mg PO BID #9 cap Referrals: Micheline Angulo MD [Primary Care Provider] - Forms: ED Department Discharge Additional Instructions: You were seen in the emergency department this evening with complaints of not feeling well for approximately 5 to 7 days with associated chest pain. Full cardiac work-up was completed to include chest x-ray, EKG and lab studies. EKG was unremarkable. Chest x-ray reveals a 1 cm nodule in the left chest. This will need to be followed up by your primary care provider and you will likely need a CT scan of your chest. Lab studies reveal that your potassium and magnesium levels were low. You did receive supplementation for this. Recommend that you drink Gatorade or Powerade to replenish your electrolytes. Urinalysis does reveal that you do have a urinary tract infection. You received your first dose of antibiotic called Omnicef while in the emergency department. I have sent prescription to your pharmacy which will need to be taken twice daily for the next 5 days. You will then need to follow-up with your primary care provider to have your urine reexamined to be sure the infection has cleared up. Covid test was completed while in the emergency department and you will be called with the results of this test. Should your condition worsen or change, do not hesitate returning to the emergency department. Sepsis Event Note (ED) - Focused Exam Vital Signs: Vital Signs Temp Pulse Resp BP Pulse Ox 08/25/21 12:35 97.3 F 84 20 128/77 99 - My Orders Last 24 Hours: My Active Orders 08/25/21 12:42 Sodium Chloride 0.9% [Saline Flush] 10 ml FLUSH ASDIRECTED PRN Saline Lock Insert [OM.PC] Stat 08/25/21 14:35 CULTURE URINE [MREF] Stat 08/25/21 16:05 CORONAVIRUS COVID-19 CASSIDY [MOLEC] Stat - Assessment/Plan Last 24 Hours: My Active Orders 08/25/21 12:42 Sodium Chloride 0.9% [Saline Flush] 10 ml FLUSH ASDIRECTED PRN Saline Lock Insert [OM.PC] Stat 08/25/21 14:35 CULTURE URINE [MREF] Stat 08/25/21 16:05 CORONAVIRUS COVID-19 CASSIDY [MOLEC] Stat
[2021-08-25] MEDS ORDERED: Acetaminophen 325 MG Tab PO ONE (15:37)
[2021-08-25] MEDS ORDERED: Cefdinir 300 MG Cap PO ONE (15:37)
== END 2021-08-25 17:25 | disposition home or self-care (01) ==
LOC: JD.ED 12:15
DX: N30.01 Acute cystitis with hematuria (principal); E87.6 Hypokalemia; E83.42 Hypomagnesemia; I25.119 Atherosclerotic heart disease of native coronary artery with unspecified angina pectoris; E78.00 Pure hypercholesterolemia, unspecified; I10 Essential (primary) hypertension; Z95.1 Presence of aortocoronary bypass graft; Z88.1 Allergy status to other antibiotic agents; Z91.040 Latex allergy status; Z88.8 Allergy status to other drugs, medicaments and biological substances; Z79.82 Long term (current) use of aspirin; Z79.899 Other long term (current) drug therapy; Z20.822 Contact with and (suspected) exposure to COVID-19
CPT/HCPCS: 36415; 71045; 80053; 81001; 83735; 83880; 84484; 85025; 85379; 86140; 87086; 93005; 99285; A9270; J7030; U0002

== ENCOUNTER 2021-12-25 13:00 | Emergency (ER) | payer MEDICARE, OTHER ==
[2021-12-25] MEDS ORDERED: Sodium Chloride 0.9% 1,000 ML IV SCH (13:45)
[2021-12-25] MEDS ORDERED: methylPREDNISolone Sodium Succinate 125 MG/2 ML SDV IVPUSH ONE (15:18)
[2021-12-25] MEDS ORDERED: Albuterol/Ipratropium 3.0-0.5 MG/3 ML Neb Soln NEB ONE (15:18)
[2021-12-25] MEDS ORDERED: Albuterol 0.083% 2.5 MG/3 ML Neb Soln NEB ONE (16:32)
[2021-12-25] MEDS ORDERED: Doxycycline 100 MG Cap PO ONE (16:32)
[2021-12-25] MEDS ORDERED: Albuterol 6.7 GM Inhaler INH ONE (16:35)
== END 2021-12-25 17:34 | disposition home or self-care (01) ==
LOC: JD.ED 13:00
DX: J40 Bronchitis, not specified as acute or chronic (principal); I25.119 Atherosclerotic heart disease of native coronary artery with unspecified angina pectoris; E78.00 Pure hypercholesterolemia, unspecified; I10 Essential (primary) hypertension; E11.9 Type 2 diabetes mellitus without complications; E03.9 Hypothyroidism, unspecified; Z88.1 Allergy status to other antibiotic agents; Z91.040 Latex allergy status; Z88.8 Allergy status to other drugs, medicaments and biological substances; Z79.82 Long term (current) use of aspirin; Z79.899 Other long term (current) drug therapy; Z20.822 Contact with and (suspected) exposure to COVID-19
CPT/HCPCS: 36415; 71045; 80053; 83735; 85025; 86140; 87804; 94640; 96374; 99285; A9270; J2930; J7030; U0002; J7620-GY

== ENCOUNTER 2023-08-18 10:27 | Emergency (ER) | payer MEDICARE, OTHER ==
[2023-08-18] MEDS ORDERED: Sodium Chloride 0.9% 10 ML Syringe FLUSH PRN (10:47)
[2023-08-18 11:06] LABS: BASOPHILS ABSOLUTE AUTO 0.1 K/mm3 (0.0-0.2); BASOPHILS PERCENT AUTO 1.3 % (0.0-1.0); EOSINOPHILS ABSOLUTE AUTO 0.2 K/mm3 (0.0-0.4); EOSINOPHILS PERCENT AUTO 2.8 % (0.0-6.0); HEMATOCRIT 46.2 % (37.0-47.0); HEMOGLOBIN 14.8 gm/dl (12.0-16.0); IMMATURE GRAN ABSOLUTE AUTO 0.03 K/mm3 (0.00-0.05); IMMATURE GRAN PERCENT AUTO 0.4 % (0.0-0.4); LYMPHOCYTES ABSOLUTE AUTO 1.9 K/mm3 (1.0-4.8); MEAN CORPUSCULAR HEMOGLOBIN 30.5 pg (28.0-32.0); MEAN CORPUSCULAR VOLUME 95.3 fl (83.0-99.0); MEAN PLATELET VOLUME 9.2 fl (9.4-12.3); MONOCYTES ABSOLUTE AUTO 0.6 K/mm3 (0.0-0.8); MONOCYTES PERCENT AUTO 7.2 % (0.0-8.0); NEUTROPHILS ABSOLUTE AUTO 5.1 K/mm3 (1.8-7.7); NEUTROPHILS PERCENT AUTO 64.3 % (41.0-71.0); PLATELET COUNT,PLT 327 K/mm3 (150-400); RED BLOOD CELL COUNT 4.85 M/mm3 (4.10-5.30); WHITE BLOOD CELL COUNT,WBC 7.95 K/mm3 (3.9-11.3)
[2023-08-18 11:08] LABS: INR 0.98; PROTHROMBIN TIME 10.5 SECONDS (9.7-12.0)
[2023-08-18 11:11] LABS: D-DIMER QUANTITATIVE < 0.19 mg/L (0.19-0.50)
[2023-08-18 11:22] LABS: A/G RATIO 1.1 (1-2); ALBUMIN 4.4 g/dl (3.4-5.0); ANION GAP 21.1 (5-15); BILIRUBIN TOTAL 0.7 mg/dL (0.2-1.0); BUN/CREATININE RATIO 16.9 (14-18); CALCIUM 9.8 mg/dL (8.5-10.1); CREATININE 1.3 mg/dL (0.55-1.02); EST CRCL DRUG DOSING (CG) 40.88 mL/min; POTASSIUM,K 4.1 mEq/L (3.5-5.1); PROTEIN TOTAL,TP 8.4 g/dl (6.4-8.2)
[2023-08-18] MEDS: Albuterol 6.7 GM Inhaler INH ONE ×2 (11:34→16:03)
[2023-08-18] MEDS ORDERED: Magnesium Sulfate (4.06 MEQ/ML) 5 GM/10 ML SDV IV ONE (11:53)
[2023-08-18] MEDS ORDERED: Magnesium Sulfate/Water 4 GM in Premix Bag 1 BAG IV ONE ×2 (12:00→12:05)
[2023-08-18 12:12] LABS: CORONAVIRUS COVID-19 NAA NEGATIVE (NEGATIVE); INFLUENZA A NAA NEGATIVE (NEGATIVE)
[2023-08-18] MEDS ORDERED: Furosemide 40 MG/4 ML VIAL IVPUSH ONE (15:40)
[2023-08-18] MEDS ORDERED: Potassium Chloride 20 MEQ Tab.ER PO ONE (15:41)
== END 2023-08-18 17:55 | disposition home or self-care (01) ==
LOC: JD.ED 10:27
DX: I11.0 Hypertensive heart disease with heart failure (principal); I50.9 Heart failure, unspecified; E83.42 Hypomagnesemia; I25.10 Atherosclerotic heart disease of native coronary artery without angina pectoris; E78.00 Pure hypercholesterolemia, unspecified; J43.9 Emphysema, unspecified; E11.9 Type 2 diabetes mellitus without complications; E03.9 Hypothyroidism, unspecified; Z90.49 Acquired absence of other specified parts of digestive tract; Z90.710 Acquired absence of both cervix and uterus; Z79.82 Long term (current) use of aspirin; Z79.899 Other long term (current) drug therapy; Z88.8 Allergy status to other drugs, medicaments and biological substances; Z88.1 Allergy status to other antibiotic agents; Z91.040 Latex allergy status; Z20.822 Contact with and (suspected) exposure to COVID-19
CPT/HCPCS: 0240U; 36415; 71045; 71045-26; 80053; 83735; 83880; 84484; 85025; 85379; 85610; 93005; 94640; 96365; 96366; 96375; 99285-25; A9270-GY; J1940; J3475; J3490

== ENCOUNTER 2024-01-04 14:32 | Emergency (ER) | payer MEDICARE, OTHER ==
[2024-01-04 15:08] LABS: BASOPHILS ABSOLUTE AUTO 0.1 K/mm3 (0.0-0.2); BASOPHILS PERCENT AUTO 1.1 % (0.0-1.0); EOSINOPHILS ABSOLUTE AUTO 0.2 K/mm3 (0.0-0.4); EOSINOPHILS PERCENT AUTO 3.4 % (0.0-6.0); HEMATOCRIT 41.1 % (37.0-47.0); IMMATURE GRAN ABSOLUTE AUTO 0.02 K/mm3 (0.00-0.05); IMMATURE GRAN PERCENT AUTO 0.3 % (0.0-0.4); LYMPHOCYTES ABSOLUTE AUTO 0.8 K/mm3 (1.0-4.8); LYMPHOCYTES PERCENT AUTO 11.6 % (24.0-44.0); MEAN CORPUSCULAR HEMOGLOBIN 29.7 pg (28.0-32.0); MEAN CORPUSCULAR HGB CONC 31.6 g/dl (32.0-36.0); MEAN CORPUSCULAR VOLUME 93.8 fl (83.0-99.0); MEAN PLATELET VOLUME 9.5 fl (9.4-12.3); MONOCYTES ABSOLUTE AUTO 0.7 K/mm3 (0.0-0.8); MONOCYTES PERCENT AUTO 9.5 % (0.0-8.0); NEUTROPHILS ABSOLUTE AUTO 5.2 K/mm3 (1.8-7.7); NEUTROPHILS PERCENT AUTO 74.1 % (41.0-71.0); RED BLOOD CELL COUNT 4.38 M/mm3 (4.10-5.30); WHITE BLOOD CELL COUNT,WBC 6.97 K/mm3 (3.9-11.3)
[2024-01-04 15:09] LABS: PLATELET COUNT,PLT 225 K/mm3 (150-400)
[2024-01-04] MEDS: Albuterol/Ipratropium 3.0-0.5 MG/3 ML Neb Soln NEB ONE (15:23)
[2024-01-04] MEDS: Sodium Chloride 0.9% 10 ML Syringe FLUSH PRN (15:29)
[2024-01-04 15:30] LABS: A/G RATIO 1.2 (1-2); BILIRUBIN TOTAL 0.4 mg/dL (0.2-1.0); BUN/CREATININE RATIO 15.5 (14-18); CALCIUM 8.4 mg/dL (8.5-10.1); CREATININE 1.1 mg/dL (0.55-1.02); EST CRCL DRUG DOSING (CG) 42.64 mL/min; MAGNESIUM 1.6 mg/dL (1.8-2.4); PROTEIN TOTAL,TP 7.3 g/dl (6.4-8.2)
[2024-01-04 15:37] LABS: D-DIMER QUANTITATIVE 0.25 mg/L (0.19-0.50); INR 0.94; PROTHROMBIN TIME 10.1 SECONDS (9.7-12.0)
[2024-01-04 15:46] LABS: CORONAVIRUS COVID-19 NAA NEGATIVE (NEGATIVE); INFLUENZA A NAA NEGATIVE (NEGATIVE); RESPIRATORY SYNCYTIAL VIR NAA POSITIVE (NEGATIVE)
[2024-01-04] MEDS: Iopamidol 612 MG/ML 100 ML Bottle IVPUSH ONE (16:16)
[2024-01-04] MEDS: Sodium Chloride 0.9% 10 ML Syringe FLUSH ONE (16:59)
[2024-01-04] MEDS ORDERED: Amoxicillin/Clavulanate K 875-125 MG Tab PO ONE (17:47)
[2024-01-04] MEDS ORDERED: Magnesium Oxide 400 MG Tab PO ONE (17:47)
== END 2024-01-04 18:05 | disposition home or self-care (01) ==
LOC: JD.ED 14:32
DX: J20.5 Acute bronchitis due to respiratory syncytial virus (principal); I25.10 Atherosclerotic heart disease of native coronary artery without angina pectoris; E78.00 Pure hypercholesterolemia, unspecified; I10 Essential (primary) hypertension; E11.9 Type 2 diabetes mellitus without complications; E03.9 Hypothyroidism, unspecified; Z88.1 Allergy status to other antibiotic agents; Z91.040 Latex allergy status; Z88.8 Allergy status to other drugs, medicaments and biological substances; Z79.82 Long term (current) use of aspirin; Z95.5 Presence of coronary angioplasty implant and graft
CPT/HCPCS: 0241U; 36415; 71045; 71260; 80053; 83735; 83880; 84484; 85025; 85379; 85610; 93005; 94640; 99285; J3490; Q9967; 93010; 99283; J7620-GY

== ENCOUNTER 2024-01-07 16:26 | Emergency (ER) | payer MEDICARE, OTHER ==
[2024-01-07] MEDS: Sodium Chloride 0.9% 10 ML Syringe FLUSH PRN (17:13)
[2024-01-07 17:21] LABS: BASOPHILS ABSOLUTE AUTO 0.1 K/mm3 (0.0-0.2); BASOPHILS PERCENT AUTO 0.7 % (0.0-1.0); EOSINOPHILS ABSOLUTE AUTO 0.3 K/mm3 (0.0-0.4); EOSINOPHILS PERCENT AUTO 3.4 % (0.0-6.0); HEMATOCRIT 42.1 % (37.0-47.0); IMMATURE GRAN ABSOLUTE AUTO 0.01 K/mm3 (0.00-0.05); IMMATURE GRAN PERCENT AUTO 0.1 % (0.0-0.4); LYMPHOCYTES ABSOLUTE AUTO 1.5 K/mm3 (1.0-4.8); LYMPHOCYTES PERCENT AUTO 19.7 % (24.0-44.0); MEAN CORPUSCULAR HEMOGLOBIN 29.3 pg (28.0-32.0); MEAN CORPUSCULAR HGB CONC 30.9 g/dl (32.0-36.0); MEAN PLATELET VOLUME 9.3 fl (9.4-12.3); MONOCYTES ABSOLUTE AUTO 0.7 K/mm3 (0.0-0.8); MONOCYTES PERCENT AUTO 9.4 % (0.0-8.0); NEUTROPHILS ABSOLUTE AUTO 5.1 K/mm3 (1.8-7.7); NEUTROPHILS PERCENT AUTO 66.7 % (41.0-71.0); PLATELET COUNT,PLT 195 K/mm3 (150-400); RED BLOOD CELL COUNT 4.43 M/mm3 (4.10-5.30); WHITE BLOOD CELL COUNT,WBC 7.68 K/mm3 (3.9-11.3)
[2024-01-07 17:42] LABS: A/G RATIO 1.2 (1-2); ANION GAP 15.5 (5-15); BILIRUBIN TOTAL 0.6 mg/dL (0.2-1.0); BUN/CREATININE RATIO 15.8 (14-18); C-REACTIVE PROTEIN 4.05 mg/dL (<0.30); CALCIUM 8.8 mg/dL (8.5-10.1); CREATININE 1.2 mg/dL (0.55-1.02); EST CRCL DRUG DOSING (CG) 43.63 mL/min; MAGNESIUM 1.9 mg/dL (1.8-2.4); POTASSIUM,K 4.5 mEq/L (3.5-5.1); PROTEIN TOTAL,TP 7.4 g/dl (6.4-8.2)
[2024-01-07 17:58] LABS: CORONAVIRUS COVID-19 NAA NEGATIVE (NEGATIVE); INFLUENZA A NAA NEGATIVE (NEGATIVE); RESPIRATORY SYNCYTIAL VIR NAA POSITIVE (NEGATIVE)
[2024-01-07] MEDS: Albuterol/Ipratropium 3.0-0.5 MG/3 ML Neb Soln NEB ONE (18:02)
[2024-01-07] MEDS: Doxycycline 100 MG in Sodium Chloride 0.9% 100 ML IV ONE (19:21)
== END 2024-01-07 21:02 | disposition home or self-care (01) ==
LOC: JD.ED 16:26
DX: J21.0 Acute bronchiolitis due to respiratory syncytial virus (principal); I25.10 Atherosclerotic heart disease of native coronary artery without angina pectoris; I10 Essential (primary) hypertension; E11.9 Type 2 diabetes mellitus without complications; E03.9 Hypothyroidism, unspecified; Z88.1 Allergy status to other antibiotic agents; Z91.040 Latex allergy status; Z88.8 Allergy status to other drugs, medicaments and biological substances; Z79.82 Long term (current) use of aspirin; Z79.899 Other long term (current) drug therapy; Z95.1 Presence of aortocoronary bypass graft; Z95.5 Presence of coronary angioplasty implant and graft
CPT/HCPCS: 0241U; 36415; 71045; 73030; 80053; 80307; 83735; 84484; 85025; 86140; 93005; 94640; 96365; 99285; J3490; J7620-GY

== ENCOUNTER 2024-04-14 10:13 | Emergency (ER) | payer MEDICARE, OTHER ==
[2024-04-14] MEDS: Ondansetron 4 MG/2 ML SDV IVPUSH ONE (11:24)
[2024-04-14] MEDS: Aspirin 81 MG Tab.Chew PO ONE (11:24)
[2024-04-14] MEDS: Sodium Chloride 0.9% 10 ML Syringe FLUSH PRN (11:25)
[2024-04-14 11:28] LABS: BASOPHILS PERCENT AUTO 0.2 % (0.0-1.0); EOSINOPHILS PERCENT AUTO 0.2 % (0.0-6.0); HEMATOCRIT 40.3 % (37.0-47.0); HEMOGLOBIN 12.7 gm/dl (12.0-16.0); IMMATURE GRAN ABSOLUTE AUTO 0.04 K/mm3 (0.00-0.05); IMMATURE GRAN PERCENT AUTO 0.3 % (0.0-0.4); LYMPHOCYTES ABSOLUTE AUTO 0.9 K/mm3 (1.0-4.8); LYMPHOCYTES PERCENT AUTO 7.9 % (24.0-44.0); MEAN CORPUSCULAR HEMOGLOBIN 29.4 pg (28.0-32.0); MEAN CORPUSCULAR HGB CONC 31.5 g/dl (32.0-36.0); MEAN CORPUSCULAR VOLUME 93.3 fl (83.0-99.0); MEAN PLATELET VOLUME 10.2 fl (9.4-12.3); MONOCYTES ABSOLUTE AUTO 0.8 K/mm3 (0.0-0.8); MONOCYTES PERCENT AUTO 6.8 % (0.0-8.0); NEUTROPHILS ABSOLUTE AUTO 9.8 K/mm3 (1.8-7.7); NEUTROPHILS PERCENT AUTO 84.6 % (41.0-71.0); PLATELET COUNT,PLT 261 K/mm3 (150-400); RED BLOOD CELL COUNT 4.32 M/mm3 (4.10-5.30); WHITE BLOOD CELL COUNT,WBC 11.59 K/mm3 (3.9-11.3)
[2024-04-14 11:44] LABS: ALBUMIN 3.8 g/dl (3.4-5.0); ANION GAP 15.4 (5-15); C-REACTIVE PROTEIN 8.69 mg/dL (<0.30); CALCIUM 9.1 mg/dL (8.5-10.1); EST CRCL DRUG DOSING (CG) 50.54 mL/min; MAGNESIUM 1.7 mg/dL (1.8-2.4); POTASSIUM,K 3.4 mEq/L (3.5-5.1); PROTEIN TOTAL,TP 7.7 g/dl (6.4-8.2)
[2024-04-14] MEDS ORDERED: Sodium Chloride 0.9% 100 ML IV SCH (12:15)
[2024-04-14] MEDS: Iopamidol 755 Mg/ML 100 ML Bottle IVPUSH ONE (12:40)
== END 2024-04-14 14:30 | disposition home or self-care (01) ==
LOC: JD.ED 10:13
DX: J18.9 Pneumonia, unspecified organism (principal); I10 Essential (primary) hypertension; I25.10 Atherosclerotic heart disease of native coronary artery without angina pectoris; E78.00 Pure hypercholesterolemia, unspecified; E11.9 Type 2 diabetes mellitus without complications; E03.9 Hypothyroidism, unspecified; Z90.49 Acquired absence of other specified parts of digestive tract; Z90.710 Acquired absence of both cervix and uterus; Z95.5 Presence of coronary angioplasty implant and graft; Z95.1 Presence of aortocoronary bypass graft; Z79.82 Long term (current) use of aspirin; Z79.890 Hormone replacement therapy; Z79.899 Other long term (current) drug therapy; Z88.1 Allergy status to other antibiotic agents; Z91.040 Latex allergy status; Z88.8 Allergy status to other drugs, medicaments and biological substances
CPT/HCPCS: 36415; 71045; 71275; 80053; 83690; 83735; 84484; 85025; 85379; 86140; 93005; 96374; 99285; A9270; J2405; J3490; Q9967

== ENCOUNTER 2024-04-15 14:02 | Inpatient (IN) | payer MEDICARE, MEDICAID ==
[2024-04-15 15:48] LABS: BASOPHILS PERCENT AUTO 0.3 % (0.0-1.0); EOSINOPHILS PERCENT AUTO 0.2 % (0.0-6.0); HEMATOCRIT 33.2 % (37.0-47.0); HEMOGLOBIN 10.3 gm/dl (12.0-16.0); IMMATURE GRAN ABSOLUTE AUTO 0.06 K/mm3 (0.00-0.05); IMMATURE GRAN PERCENT AUTO 0.5 % (0.0-0.4); LYMPHOCYTES ABSOLUTE AUTO 1.1 K/mm3 (1.0-4.8); LYMPHOCYTES PERCENT AUTO 9.1 % (24.0-44.0); MEAN CORPUSCULAR HEMOGLOBIN 29.3 pg (28.0-32.0); MEAN CORPUSCULAR VOLUME 94.3 fl (83.0-99.0); MEAN PLATELET VOLUME 9.9 fl (9.4-12.3); MONOCYTES ABSOLUTE AUTO 1.1 K/mm3 (0.0-0.8); MONOCYTES PERCENT AUTO 9.1 % (0.0-8.0); NEUTROPHILS ABSOLUTE AUTO 9.7 K/mm3 (1.8-7.7); NEUTROPHILS PERCENT AUTO 80.8 % (41.0-71.0); PLATELET COUNT,PLT 221 K/mm3 (150-400); RED BLOOD CELL COUNT 3.52 M/mm3 (4.10-5.30); WHITE BLOOD CELL COUNT,WBC 12.04 K/mm3 (3.9-11.3)
[2024-04-15 16:23] LABS: LACTIC ACID 0.6 mmol/L (0.4-2.0)
[2024-04-15 16:29] LABS: A/G RATIO 0.9 (1-2); ALBUMIN 3.1 g/dl (3.4-5.0); ANION GAP 10.6 (5-15); BILIRUBIN TOTAL 0.6 mg/dL (0.2-1.0); CALCIUM 8.2 mg/dL (8.5-10.1); CREATININE 1.2 mg/dL (0.55-1.02); EST CRCL DRUG DOSING (CG) 42.12 mL/min; MAGNESIUM 1.9 mg/dL (1.8-2.4); POTASSIUM,K 3.6 mEq/L (3.5-5.1); PROTEIN TOTAL,TP 6.7 g/dl (6.4-8.2); TSH 0.231 uIU/mL (0.358-3.74)
[2024-04-15 16:51] LABS: HEMOGLOBIN A1C 5.4 %
[2024-04-15 18:19] LABS: APPEARANCE,URINE SLT CLOUDY (Clear); BILIRUBIN,URINE 3+ (Negative); COLOR,URINE DARK YELLOW (Yellow); GLUCOSE,URINE NEGATIVE (Negative); KETONES,URINE 1+ (Negative); LEUKOCYTE ESTERASE,URINE NEGATIVE (Negative); NITRITE,URINE NEGATIVE (Negative); OCCULT BLOOD,URINE NEGATIVE (Negative); PH,URINE 5.5 (5.0-8.0); PROTEIN,URINE 2+ (Negative); UROBILINOGEN,URINE 0.2 (0.2-1.0)
[2024-04-15] MEDS: Acetaminophen 325 MG Tab PO ONE (18:47)
[2024-04-15 18:49] LABS: BACTERIA,URINE MODERATE /hpf (FEW); RBC,URINE 0-5 /hpf (0-5); SQUAMOUS EPITHELIAL CELLS,UR 0-5 /hpf (0-5)
[2024-04-15] MEDS: traMADol 50 MG Tab PO ONE (18:49)
[2024-04-15 18:50] LABS: HYALINE CASTS,URINE 75-100 /lpf (0-5); MUCUS,URINE MANY /hpf (FEW)
[2024-04-15] MEDS ORDERED: Polyethylene Glycol 3350 Powder 17 GM Packet PO PRN (20:15)
[2024-04-15] MEDS: Ondansetron 4 MG Tab.DIS PO PRN (22:43)
[2024-04-15] MEDS: Rosuvastatin 10 MG Tab PO SCH (23:05)
[2024-04-16] MEDS: Citalopram 20 MG Tab PO SCH (08:13)
[2024-04-16] MEDS: Lisinopril 2.5 MG Tab PO SCH (08:13)
[2024-04-16] MEDS: Metoprolol Tartrate 25 MG Tab PO SCH (08:14)
[2024-04-16] MEDS: Aspirin 81 MG Tab.EC PO SCH (08:14)
[2024-04-16] MEDS: Enoxaparin 40 MG/0.4 ML Syringe SUBCUT SCH (10:41)
[2024-04-16] MEDS: Acetaminophen 325 MG Tab PO SCH (10:41)
[2024-04-16] MEDS: Isosorbide Mononitrate 30 MG Tab.ER PO SCH (10:50)
[2024-04-16 11:43] LABS: BASOPHILS PERCENT AUTO 0.4 % (0.0-1.0); EOSINOPHILS ABSOLUTE AUTO 0.1 K/mm3 (0.0-0.4); HEMATOCRIT 36.4 % (37.0-47.0); HEMOGLOBIN 11.3 gm/dl (12.0-16.0); IMMATURE GRAN ABSOLUTE AUTO 0.03 K/mm3 (0.00-0.05); IMMATURE GRAN PERCENT AUTO 0.4 % (0.0-0.4); LYMPHOCYTES ABSOLUTE AUTO 1.1 K/mm3 (1.0-4.8); LYMPHOCYTES PERCENT AUTO 13.3 % (24.0-44.0); MEAN CORPUSCULAR HEMOGLOBIN 29.4 pg (28.0-32.0); MEAN CORPUSCULAR VOLUME 94.5 fl (83.0-99.0); MEAN PLATELET VOLUME 10.1 fl (9.4-12.3); MONOCYTES ABSOLUTE AUTO 0.6 K/mm3 (0.0-0.8); MONOCYTES PERCENT AUTO 7.8 % (0.0-8.0); NEUTROPHILS ABSOLUTE AUTO 6.2 K/mm3 (1.8-7.7); NEUTROPHILS PERCENT AUTO 77.1 % (41.0-71.0); PLATELET COUNT,PLT 252 K/mm3 (150-400); RED BLOOD CELL COUNT 3.85 M/mm3 (4.10-5.30); WHITE BLOOD CELL COUNT,WBC 7.98 K/mm3 (3.9-11.3)
[2024-04-17] MEDS: Gabapentin 100 MG Cap PO PRN (01:10)
[2024-04-17] MEDS: Levothyroxine 75 MCG Tab PO SCH (06:23)
[2024-04-17] MEDS: DULoxetine 30 MG Cap PO SCH (08:57)
[2024-04-17] MEDS: Diclofenac Sodium 1% Gel 100 GM Tube TOP PRN (20:50)
[2024-04-17] MEDS: Melatonin 3 MG Tab PO PRN (20:54)
[2024-04-19] MEDS: oxyCODONE 5 MG Tab PO PRN (22:48)
[2024-04-20] MEDS: Acetaminophen 325 MG Tab PO PRN (03:46)
[2024-04-21] MEDS: traMADol 50 MG Tab PO PRN (08:28)
[2024-04-21] MEDS: Insulin Lispro 100 Unit/ML 3 ML KwikPen SUBCUT SCH (17:38)
[2024-04-22] MEDS: Baclofen 10 MG Tab PO SCH (15:33)
[2024-04-30] MEDS: Cyanocobalamin (Vitamin B12) 1,000 MCG Tab PO SCH (08:26)
[2024-04-30] MEDS: Folic Acid 1 MG Tab PO SCH (08:26)
[2024-05-06] MEDS: oxyCODONE 5 MG Tab PO PRN (00:24)
[2024-05-21] MEDS: Melatonin 3 MG Tab PO SCH (20:55)
== END 2024-05-27 15:13 | disposition home or self-care (01) | DRG 884 ==
LOC: JD.ED 14:02 → JD.MS 19:08 → OBSVTOIN 04-19 12:09
PROVIDERS: ADMIT Family Medicine; ATTEND Internal Medicine
DX: F03.B4 Unspecified dementia, moderate, with anxiety (principal); R07.89 Other chest pain; E05.90 Thyrotoxicosis, unspecified without thyrotoxic crisis or storm; E43 Unspecified severe protein-calorie malnutrition; Z91.81 History of falling; I25.810 Atherosclerosis of coronary artery bypass graft(s) without angina pectoris; R62.7 Adult failure to thrive; I25.10 Atherosclerotic heart disease of native coronary artery without angina pectoris; F03.B3 Unspecified dementia, moderate, with mood disturbance; F03.B18 Unspecified dementia, moderate, with other behavioral disturbance; I10 Essential (primary) hypertension; I48.91 Unspecified atrial fibrillation; Z66 Do not resuscitate; H54.7 Unspecified visual loss; E78.00 Pure hypercholesterolemia, unspecified; G47.30 Sleep apnea, unspecified; Z68.24 Body mass index [BMI] 24.0-24.9, adult; E11.9 Type 2 diabetes mellitus without complications; E03.9 Hypothyroidism, unspecified; D64.9 Anemia, unspecified; G89.29 Other chronic pain; M54.9 Dorsalgia, unspecified; E05.80 Other thyrotoxicosis without thyrotoxic crisis or storm; D72.829 Elevated white blood cell count, unspecified; M94.0 Chondrocostal junction syndrome [Tietze]; Z95.1 Presence of aortocoronary bypass graft; Z88.1 Allergy status to other antibiotic agents; Z95.5 Presence of coronary angioplasty implant and graft; Z88.8 Allergy status to other drugs, medicaments and biological substances; Z85.41 Personal history of malignant neoplasm of cervix uteri; Z79.82 Long term (current) use of aspirin; Z90.89 Acquired absence of other organs; Z79.84 Long term (current) use of oral hypoglycemic drugs; Z79.890 Hormone replacement therapy; Z91.040 Latex allergy status; Z90.710 Acquired absence of both cervix and uterus; Z79.899 Other long term (current) drug therapy; Z98.890 Other specified postprocedural states
CPT/HCPCS: 36415 ×2; 71045; 80053; 80307; 81001; 82550; 82947 ×14; 83036; 83605; 83735; 83880; 84443; 84484; 85025 ×2; 85379; 85652; 86140; 87040 ×2; 92523; 93005; 97110 ×6; 97161; 97530; 99285; A9270 ×47; J1650 ×4; 93010; 96372; 99283; G0378; J1815

== ENCOUNTER 2025-06-03 12:02 | Inpatient (IN) | payer MEDICARE ==
[2025-06-03 12:40] LABS: BASOPHILS ABSOLUTE AUTO 0.1 K/mm3 (0.0-0.2); BASOPHILS PERCENT AUTO 0.6 % (0.0-1.0); EOSINOPHILS ABSOLUTE AUTO 0.1 K/mm3 (0.0-0.4); EOSINOPHILS PERCENT AUTO 0.8 % (0.0-6.0); IMMATURE GRAN ABSOLUTE AUTO 0.05 K/mm3 (0.00-0.05); IMMATURE GRAN PERCENT AUTO 0.4 % (0.0-0.4); LYMPHOCYTES ABSOLUTE AUTO 0.7 K/mm3 (1.0-4.8); LYMPHOCYTES PERCENT AUTO 5.3 % (24.0-44.0); MEAN PLATELET VOLUME 11.5 fl (9.4-12.3); MONOCYTES ABSOLUTE AUTO 0.7 K/mm3 (0.0-0.8); MONOCYTES PERCENT AUTO 6.1 % (0.0-8.0); NEUTROPHILS ABSOLUTE AUTO 10.6 K/mm3 (1.8-7.7); NEUTROPHILS PERCENT AUTO 86.8 % (41.0-71.0); NRBC ABSOLUTE 0.00 (0.00-0.02); NRBC PERCENT 0.0 % (0.0-0.2); PLATELET COUNT,PLT 216 K/mm3 (150-400); RED BLOOD CELL COUNT 4.11 M/mm3 (4.10-5.30); WHITE BLOOD CELL COUNT,WBC 12.16 K/mm3 (3.9-11.3)
[2025-06-03] MEDS: Sodium Chloride 0.9% 10 ML Syringe FLUSH PRN (12:42)
[2025-06-03 13:19] LABS: A/G RATIO 0.9 (1-2); ALANINE AMINOTRANSFERASE,ALT 15 U/L (14-59); BILIRUBIN TOTAL 0.5 mg/dL (0.2-1.0); CARBON DIOXIDE,CO2 11 mEq/L (21-32); CHLORIDE,CL 100 mEq/L (98-107); CREATINE KINASE,CK 16 U/L (26-192); CREATININE 6.4 mg/dL (0.55-1.02); ESTIMATED GFR 6 mL/min (>60); GLUCOSE RANDOM 175 mg/dL (70-99); POTASSIUM,K 4.5 mEq/L (3.5-5.1); PROTEIN TOTAL,TP 7.3 g/dl (6.4-8.2); SODIUM,NA 134 mEq/L (136-145); TROPONIN I HIGH SENSITIVITY 26 pg/mL (<=51); TSH 36.340 uIU/mL (0.358-3.74)
[2025-06-03 13:26] LABS: LACTIC ACID 1.2 mmol/L (0.4-2.0)
[2025-06-03 14:03] LABS: ASPARTATE AMNIOTRANSFERASE,AST 8 U/L (15-37); T4 FREE 0.24 ng/dL (0.76-1.46)
[2025-06-03 14:46] LABS: BLOOD UREA NITROGEN,BUN 147 mg/dL (7-18)
[2025-06-03 16:00] LABS: APPEARANCE,URINE CLEAR (Clear); GLUCOSE,URINE NEGATIVE (Negative); OCCULT BLOOD,URINE 2+ (Negative)
[2025-06-03 16:09] LABS: EPITHELIAL CELLS,URINE 0-5 /hpf (0-5)
[2025-06-03] MEDS: NACL IV SCH (17:53)
[2025-06-03] MEDS: NOREPINEPHRINE BIT IV SCH (17:53)
[2025-06-03 19:02] LABS: INR 1.01
[2025-06-03 21:15] LABS: CARBON DIOXIDE,CO2 11.0 mEq/L (21-32); CHLORIDE,CL 106.0 mEq/L (98-107); CREATININE 5.5 mg/dL (0.55-1.02); ESTIMATED GFR 8.0 mL/min (>60); GLUCOSE RANDOM 149.0 mg/dL (70-99); POTASSIUM,K 4.2 mEq/L (3.5-5.1); SODIUM,NA 139.0 mEq/L (136-145)
[2025-06-03] MEDS: Iopamidol 755 Mg/ML 100 ML Bottle IVPUSH ONE (21:55)
[2025-06-03] MEDS: Sodium Chloride 0.9% 10 ML Syringe FLUSH ONE (21:55)
[2025-06-03] MEDS: Hydrocortisone Sodium Succinate 100 MG/2 ML SDV IVPUSH SCH (21:59)
[2025-06-03 22:20] LABS: EST CRCL DRUG DOSING (CG) 8.94 mL/min
[2025-06-03 22:21] LABS: BLOOD UREA NITROGEN,BUN 153.0 mg/dL (7-18)
[2025-06-04] MEDS: Phenazopyridine 95 MG Tab PO SCH ×2 (00:24→14:31)
[2025-06-04] MEDS ORDERED: Ondansetron 4 MG/2 ML SDV IVPUSH PRN (06:09)
[2025-06-04 06:17] LABS: BASOPHILS ABSOLUTE AUTO 0.0 K/mm3 (0.0-0.2); BASOPHILS PERCENT AUTO 0.2 % (0.0-1.0); EOSINOPHILS ABSOLUTE AUTO 0.0 K/mm3 (0.0-0.4); EOSINOPHILS PERCENT AUTO 0.0 % (0.0-6.0); IMMATURE GRAN ABSOLUTE AUTO 0.05 K/mm3 (0.00-0.05); IMMATURE GRAN PERCENT AUTO 0.5 % (0.0-0.4); LYMPHOCYTES ABSOLUTE AUTO 0.3 K/mm3 (1.0-4.8); LYMPHOCYTES PERCENT AUTO 2.5 % (24.0-44.0); MEAN PLATELET VOLUME 11.9 fl (9.4-12.3); MONOCYTES ABSOLUTE AUTO 0.1 K/mm3 (0.0-0.8); MONOCYTES PERCENT AUTO 0.9 % (0.0-8.0); NEUTROPHILS ABSOLUTE AUTO 10.0 K/mm3 (1.8-7.7); NEUTROPHILS PERCENT AUTO 95.9 % (41.0-71.0); NRBC ABSOLUTE 0.00 (0.00-0.02); NRBC PERCENT 0.0 % (0.0-0.2); PLATELET COUNT,PLT 153 K/mm3 (150-400); RED BLOOD CELL COUNT 3.43 M/mm3 (4.10-5.30); WHITE BLOOD CELL COUNT,WBC 10.37 K/mm3 (3.9-11.3)
[2025-06-04 06:27] LABS: A/G RATIO 0.8 (1-2); ALANINE AMINOTRANSFERASE,ALT 12.0 U/L (14-59); ASPARTATE AMNIOTRANSFERASE,AST 7.0 U/L (15-37); BILIRUBIN TOTAL 0.3 mg/dL (0.2-1.0); BLOOD UREA NITROGEN,BUN 133.0 mg/dL (7-18); CARBON DIOXIDE,CO2 11.0 mEq/L (21-32); CHLORIDE,CL 110.0 mEq/L (98-107); CREATININE 4.6 mg/dL (0.55-1.02); EST CRCL DRUG DOSING (CG) 10.69 mL/min; ESTIMATED GFR 9.0 mL/min (>60); GLUCOSE RANDOM 213.0 mg/dL (70-99); POTASSIUM,K 4.3 mEq/L (3.5-5.1); PROTEIN TOTAL,TP 6.1 g/dl (6.4-8.2); SODIUM,NA 141.0 mEq/L (136-145)
[2025-06-04] MEDS ORDERED: 50% Dextrose in Water 50 ML Syringe IVPUSH PRN (12:17)
[2025-06-04] MEDS: Heparin Sodium 5,000 Units/ML Vial SUBCUT SCH (13:17)
[2025-06-04] MEDS: Insulin Lispro 100 Unit/ML 3 ML KwikPen SUBCUT SCH (17:11)
[2025-06-05 04:12] LABS: BASOPHILS ABSOLUTE AUTO 0.0 K/mm3 (0.0-0.2); BASOPHILS PERCENT AUTO 0.1 % (0.0-1.0); EOSINOPHILS ABSOLUTE AUTO 0.0 K/mm3 (0.0-0.4); EOSINOPHILS PERCENT AUTO 0.3 % (0.0-6.0); IMMATURE GRAN ABSOLUTE AUTO 0.06 K/mm3 (0.00-0.05); IMMATURE GRAN PERCENT AUTO 0.7 % (0.0-0.4); LYMPHOCYTES ABSOLUTE AUTO 0.7 K/mm3 (1.0-4.8); LYMPHOCYTES PERCENT AUTO 7.7 % (24.0-44.0); MEAN PLATELET VOLUME 11.5 fl (9.4-12.3); MONOCYTES ABSOLUTE AUTO 0.5 K/mm3 (0.0-0.8); MONOCYTES PERCENT AUTO 5.3 % (0.0-8.0); NEUTROPHILS ABSOLUTE AUTO 7.9 K/mm3 (1.8-7.7); NEUTROPHILS PERCENT AUTO 85.9 % (41.0-71.0); NRBC ABSOLUTE 0.00 (0.00-0.02); NRBC PERCENT 0.0 % (0.0-0.2); PLATELET COUNT,PLT 157 K/mm3 (150-400); RED BLOOD CELL COUNT 3.13 M/mm3 (4.10-5.30); WHITE BLOOD CELL COUNT,WBC 9.22 K/mm3 (3.9-11.3)
[2025-06-05 04:39] LABS: A/G RATIO 0.9 (1-2); ALANINE AMINOTRANSFERASE,ALT 13.0 U/L (14-59); ASPARTATE AMNIOTRANSFERASE,AST 12.0 U/L (15-37); BILIRUBIN TOTAL 0.3 mg/dL (0.2-1.0); BLOOD UREA NITROGEN,BUN 100.0 mg/dL (7-18); CARBON DIOXIDE,CO2 14.0 mEq/L (21-32); CHLORIDE,CL 113.0 mEq/L (98-107); CREATININE 3.0 mg/dL (0.55-1.02); EST CRCL DRUG DOSING (CG) 16.94 mL/min; ESTIMATED GFR 16.0 mL/min (>60); GLUCOSE RANDOM 125.0 mg/dL (70-99); POTASSIUM,K 3.0 mEq/L (3.5-5.1); PROTEIN TOTAL,TP 5.6 g/dl (6.4-8.2); SODIUM,NA 142.0 mEq/L (136-145)
[2025-06-05] MEDS: Potassium Chloride 20 MEQ Tab.ER PO ONE (08:35)
[2025-06-05 08:48] LABS: PHOSPHORUS 3.4 mg/dL (2.6-4.7)
[2025-06-06 06:14] LABS: BASOPHILS ABSOLUTE AUTO 0.0 K/mm3 (0.0-0.2); BASOPHILS PERCENT AUTO 0.3 % (0.0-1.0); EOSINOPHILS ABSOLUTE AUTO 0.1 K/mm3 (0.0-0.4); EOSINOPHILS PERCENT AUTO 1.8 % (0.0-6.0); IMMATURE GRAN ABSOLUTE AUTO 0.05 K/mm3 (0.00-0.05); IMMATURE GRAN PERCENT AUTO 0.8 % (0.0-0.4); LYMPHOCYTES ABSOLUTE AUTO 0.7 K/mm3 (1.0-4.8); LYMPHOCYTES PERCENT AUTO 11.8 % (24.0-44.0); MEAN PLATELET VOLUME 10.5 fl (9.4-12.3); MONOCYTES ABSOLUTE AUTO 0.4 K/mm3 (0.0-0.8); MONOCYTES PERCENT AUTO 5.8 % (0.0-8.0); NEUTROPHILS ABSOLUTE AUTO 5.0 K/mm3 (1.8-7.7); NEUTROPHILS PERCENT AUTO 79.5 % (41.0-71.0); NRBC ABSOLUTE 0.00 (0.00-0.02); NRBC PERCENT 0.0 % (0.0-0.2); PLATELET COUNT,PLT 139 K/mm3 (150-400); RED BLOOD CELL COUNT 2.81 M/mm3 (4.10-5.30); WHITE BLOOD CELL COUNT,WBC 6.26 K/mm3 (3.9-11.3)
[2025-06-06 06:37] LABS: A/G RATIO 0.9 (1-2); ALANINE AMINOTRANSFERASE,ALT 17.0 U/L (14-59); ASPARTATE AMNIOTRANSFERASE,AST 14.0 U/L (15-37); BILIRUBIN TOTAL 0.3 mg/dL (0.2-1.0); BLOOD UREA NITROGEN,BUN 63.0 mg/dL (7-18); CARBON DIOXIDE,CO2 12.0 mEq/L (21-32); CHLORIDE,CL 114.0 mEq/L (98-107); CREATININE 1.8 mg/dL (0.55-1.02); EST CRCL DRUG DOSING (CG) 27.92 mL/min; ESTIMATED GFR 29.0 mL/min (>60); GLUCOSE RANDOM 127.0 mg/dL (70-99); POTASSIUM,K 2.8 mEq/L (3.5-5.1); PROTEIN TOTAL,TP 5.2 g/dl (6.4-8.2); SODIUM,NA 142.0 mEq/L (136-145)
[2025-06-06] MEDS: Potassium Chloride 20 MEQ Tab.ER PO ONE (08:49)
[2025-06-06] MEDS: Magnesium Sulf/Wat 4 GM/50 mL 4 GM in Premix Bag 1 BAG IV ONE (08:49)
[2025-06-06 09:27] LABS: CHOLESTEROL HDL 36 mg/dL (40-59); CHOLESTEROL LDL DIRECT 111 mg/dL (<100); CHOLESTEROL TOTAL 186 mg/dL (<200)
[2025-06-07 05:34] LABS: BASOPHILS ABSOLUTE AUTO 0.0 K/mm3 (0.0-0.2); BASOPHILS PERCENT AUTO 0.3 % (0.0-1.0); EOSINOPHILS ABSOLUTE AUTO 0.2 K/mm3 (0.0-0.4); EOSINOPHILS PERCENT AUTO 2.4 % (0.0-6.0); IMMATURE GRAN ABSOLUTE AUTO 0.04 K/mm3 (0.00-0.05); IMMATURE GRAN PERCENT AUTO 0.6 % (0.0-0.4); LYMPHOCYTES ABSOLUTE AUTO 0.8 K/mm3 (1.0-4.8); LYMPHOCYTES PERCENT AUTO 10.7 % (24.0-44.0); MEAN PLATELET VOLUME 10.6 fl (9.4-12.3); MONOCYTES ABSOLUTE AUTO 0.4 K/mm3 (0.0-0.8); MONOCYTES PERCENT AUTO 5.6 % (0.0-8.0); NEUTROPHILS ABSOLUTE AUTO 5.7 K/mm3 (1.8-7.7); NEUTROPHILS PERCENT AUTO 80.4 % (41.0-71.0); NRBC ABSOLUTE 0.00 (0.00-0.02); NRBC PERCENT 0.0 % (0.0-0.2); PLATELET COUNT,PLT 132 K/mm3 (150-400); RED BLOOD CELL COUNT 2.98 M/mm3 (4.10-5.30); WHITE BLOOD CELL COUNT,WBC 7.09 K/mm3 (3.9-11.3)
[2025-06-07 06:19] LABS: A/G RATIO 0.9 (1-2); ALANINE AMINOTRANSFERASE,ALT 18.0 U/L (14-59); ASPARTATE AMNIOTRANSFERASE,AST 13.0 U/L (15-37); BILIRUBIN TOTAL 0.4 mg/dL (0.2-1.0); BLOOD UREA NITROGEN,BUN 36.0 mg/dL (7-18); CARBON DIOXIDE,CO2 14.0 mEq/L (21-32); CHLORIDE,CL 113.0 mEq/L (98-107); CREATININE 1.3 mg/dL (0.55-1.02); ESTIMATED GFR 43.0 mL/min (>60); GLUCOSE RANDOM 120.0 mg/dL (70-99); POTASSIUM,K 2.9 mEq/L (3.5-5.1); PROTEIN TOTAL,TP 5.4 g/dl (6.4-8.2); SODIUM,NA 143.0 mEq/L (136-145)
[2025-06-07 06:34] LABS: EST CRCL DRUG DOSING (CG) 39.68 mL/min
[2025-06-07 07:50] LABS: PHOSPHORUS 1.7 mg/dL (2.6-4.7)
[2025-06-07] MEDS: Potassium Chloride 20 MEQ Tab.ER PO SCH (09:47)
[2025-06-07] MEDS: Magnesium Sulfate 2 GM/50 mL 2 GM in Premix Bag 1 BAG IV ONE (15:49)
[2025-06-07 16:31] LABS: PCO2 VENOUS 23.0 mmHg (41-51); PH,VENOUS 7.32 (7.30-7.40)
[2025-06-07 16:32] LABS: BASE EXCESS VENOUS -12.7 (-4.0-2.0); BICARBONATE,VENOUS 11.9 meq/L (22-26); O2 SATURATION VENOUS 97.5; PO2 VENOUS 73.0 mmHG (40-80)
[2025-06-08 06:23] LABS: BLOOD UREA NITROGEN,BUN 20.0 mg/dL (7-18); CARBON DIOXIDE,CO2 15.0 mEq/L (21-32); CHLORIDE,CL 115.0 mEq/L (98-107); CREATININE 1.0 mg/dL (0.55-1.02); EST CRCL DRUG DOSING (CG) 51.58 mL/min; ESTIMATED GFR 59.0 mL/min (>60); GLUCOSE RANDOM 94.0 mg/dL (70-99); POTASSIUM,K 3.5 mEq/L (3.5-5.1); SODIUM,NA 141.0 mEq/L (136-145)
[2025-06-08] MEDS: Potassium Chloride 20 MEQ Tab.ER PO ONE (08:55)
[2025-06-08] MEDS: Magnesium Sulf/Wat 4 GM/50 mL 4 GM in Premix Bag 1 BAG IV ONE (09:09)
[2025-06-09 05:15] LABS: BLOOD UREA NITROGEN,BUN 14.0 mg/dL (7-18); CARBON DIOXIDE,CO2 17.0 mEq/L (21-32); CHLORIDE,CL 113.0 mEq/L (98-107); CREATININE 1.0 mg/dL (0.55-1.02); EST CRCL DRUG DOSING (CG) 51.58 mL/min; ESTIMATED GFR 59.0 mL/min (>60); GLUCOSE RANDOM 106.0 mg/dL (70-99); POTASSIUM,K 3.7 mEq/L (3.5-5.1); SODIUM,NA 141.0 mEq/L (136-145)
[2025-06-09] MEDS: Magnesium Sulf/Wat 4 GM/50 mL 4 GM in Premix Bag 1 BAG IV ONE (08:02)
[2025-06-16 04:44] LABS: BASOPHILS ABSOLUTE AUTO 0.0 K/mm3 (0.0-0.2); BASOPHILS PERCENT AUTO 1.1 % (0.0-1.0); EOSINOPHILS ABSOLUTE AUTO 0.2 K/mm3 (0.0-0.4); EOSINOPHILS PERCENT AUTO 5.7 % (0.0-6.0); IMMATURE GRAN ABSOLUTE AUTO 0.01 K/mm3 (0.00-0.05); IMMATURE GRAN PERCENT AUTO 0.3 % (0.0-0.4); LYMPHOCYTES ABSOLUTE AUTO 1.1 K/mm3 (1.0-4.8); LYMPHOCYTES PERCENT AUTO 29.3 % (24.0-44.0); MEAN PLATELET VOLUME 10.2 fl (9.4-12.3); MONOCYTES ABSOLUTE AUTO 0.4 K/mm3 (0.0-0.8); MONOCYTES PERCENT AUTO 11.7 % (0.0-8.0); NEUTROPHILS ABSOLUTE AUTO 1.9 K/mm3 (1.8-7.7); NEUTROPHILS PERCENT AUTO 51.9 % (41.0-71.0); NRBC ABSOLUTE 0.00 (0.00-0.02); NRBC PERCENT 0.0 % (0.0-0.2); PLATELET COUNT,PLT 198 K/mm3 (150-400); RED BLOOD CELL COUNT 2.62 M/mm3 (4.10-5.30); WHITE BLOOD CELL COUNT,WBC 3.69 K/mm3 (3.9-11.3)
[2025-06-16 05:01] LABS: BLOOD UREA NITROGEN,BUN 10.0 mg/dL (7-18); CARBON DIOXIDE,CO2 28.0 mEq/L (21-32); CHLORIDE,CL 105.0 mEq/L (98-107); CREATININE 0.9 mg/dL (0.55-1.02); EST CRCL DRUG DOSING (CG) 57.31 mL/min; ESTIMATED GFR 67.0 mL/min (>60); GLUCOSE RANDOM 129.0 mg/dL (70-99); POTASSIUM,K 4.0 mEq/L (3.5-5.1); SODIUM,NA 142.0 mEq/L (136-145)
[2025-06-16 07:40] LABS: IRON,FE 42.0 ug/dL (50-170); PERCENT FE SATURATION 26.0 % (20-55)
[2025-06-16 08:21] LABS: FOLIC ACID 3.7 ng/mL (8.6-58.9)
[2025-06-16] MEDS: Ferrous Sulfate 324 MG Tab.EC PO ONE (14:29)
[2025-06-16 14:48] LABS: RETICULOCYTE COUNT PERCENT 2.39 % (0.50-2.00)
[2025-06-16] MEDS: Ondansetron 4 MG Tab.DIS PO PRN (21:12)
[2025-06-17 04:40] LABS: BASOPHILS ABSOLUTE AUTO 0.0 K/mm3 (0.0-0.2); BASOPHILS PERCENT AUTO 0.8 % (0.0-1.0); EOSINOPHILS ABSOLUTE AUTO 0.2 K/mm3 (0.0-0.4); EOSINOPHILS PERCENT AUTO 6.1 % (0.0-6.0); IMMATURE GRAN ABSOLUTE AUTO 0.02 K/mm3 (0.00-0.05); IMMATURE GRAN PERCENT AUTO 0.8 % (0.0-0.4); LYMPHOCYTES ABSOLUTE AUTO 0.8 K/mm3 (1.0-4.8); LYMPHOCYTES PERCENT AUTO 31.4 % (24.0-44.0); MEAN PLATELET VOLUME 9.9 fl (9.4-12.3); MONOCYTES ABSOLUTE AUTO 0.3 K/mm3 (0.0-0.8); MONOCYTES PERCENT AUTO 11.0 % (0.0-8.0); NEUTROPHILS ABSOLUTE AUTO 1.3 K/mm3 (1.8-7.7); NEUTROPHILS PERCENT AUTO 49.9 % (41.0-71.0); NRBC ABSOLUTE 0.00 (0.00-0.02); NRBC PERCENT 0.0 % (0.0-0.2); PLATELET COUNT,PLT 200 K/mm3 (150-400); RED BLOOD CELL COUNT 2.33 M/mm3 (4.10-5.30); WHITE BLOOD CELL COUNT,WBC 2.64 K/mm3 (3.9-11.3)
[2025-06-17] MEDS: Ferrous Sulfate 324 MG Tab.EC PO SCH (06:00)
[2025-06-17] MEDS: Magnesium Sulf/Wat 4 GM/50 mL 4 GM in Premix Bag 1 BAG IV ONE (08:36)
[2025-06-17] MEDS ORDERED: Ferrous Sulfate 324 MG Tab.EC PO ONE (13:25)
[2025-06-17 13:51] LABS: APPEARANCE,URINE CLEAR (Clear); GLUCOSE,URINE TRACE (Negative); OCCULT BLOOD,URINE TRACE-INTACT (Negative)
[2025-06-17 13:59] LABS: EPITHELIAL CELLS,URINE 0-5 /hpf (0-5)
[2025-06-17 14:00] LABS: YEAST BUDDING,URINE FEW (NOT SEEN)
[2025-06-17 14:55] LABS: MEAN PLATELET VOLUME 9.8 fl (9.4-12.3); NRBC ABSOLUTE 0.00 (0.00-0.02); NRBC PERCENT 0.0 % (0.0-0.2); PLATELET COUNT,PLT 198 K/mm3 (150-400); RED BLOOD CELL COUNT 2.79 M/mm3 (4.10-5.30); WHITE BLOOD CELL COUNT,WBC 3.57 K/mm3 (3.9-11.3)
[2025-06-17 15:17] LABS: BILIRUBIN DIRECT 0.1 mg/dl (0.0-0.2); BILIRUBIN TOTAL 0.3 mg/dL (0.2-1.0); LACTATE DEHYDROGENASE,LDH 217.0 U/L (81-234)
[2025-06-17 15:36] LABS: BAND PERCENT MAN 1 % (0-10); BASOPHILS PERCENT MAN 0 (0.1-1.2); EOSINOPHILS PERCENT MAN 2 % (0.7-5.8); LYMPHOCYTES % ATYPICAL MANUAL 0 %; LYMPHOCYTES PERCENT MAN 40 % (20-40); MONOCYTES PERCENT MAN 1 % (2-10)
[2025-06-17 15:38] LABS: PLATELET COUNT ESTIMATE ADEQUATE
[2025-06-17 15:49] LABS: PTT,PARTIAL THROMBOPLSTIN TIME 32.2 SECONDS (21.7-31.4)
[2025-06-17 15:53] LABS: INR < 0.93
[2025-06-18 04:31] LABS: BASOPHILS ABSOLUTE AUTO 0.0 K/mm3 (0.0-0.2); BASOPHILS PERCENT AUTO 1.0 % (0.0-1.0); EOSINOPHILS ABSOLUTE AUTO 0.2 K/mm3 (0.0-0.4); EOSINOPHILS PERCENT AUTO 6.4 % (0.0-6.0); IMMATURE GRAN ABSOLUTE AUTO 0.01 K/mm3 (0.00-0.05); IMMATURE GRAN PERCENT AUTO 0.3 % (0.0-0.4); LYMPHOCYTES ABSOLUTE AUTO 0.9 K/mm3 (1.0-4.8); LYMPHOCYTES PERCENT AUTO 29.2 % (24.0-44.0); MEAN PLATELET VOLUME 10.1 fl (9.4-12.3); MONOCYTES ABSOLUTE AUTO 0.4 K/mm3 (0.0-0.8); MONOCYTES PERCENT AUTO 13.8 % (0.0-8.0); NEUTROPHILS ABSOLUTE AUTO 1.5 K/mm3 (1.8-7.7); NEUTROPHILS PERCENT AUTO 49.3 % (41.0-71.0); NRBC ABSOLUTE 0.00 (0.00-0.02); NRBC PERCENT 0.0 % (0.0-0.2); PLATELET COUNT,PLT 191 K/mm3 (150-400); RED BLOOD CELL COUNT 2.51 M/mm3 (4.10-5.30); WHITE BLOOD CELL COUNT,WBC 2.98 K/mm3 (3.9-11.3)
[2025-06-18 05:02] LABS: A/G RATIO 0.8 (1-2); ALANINE AMINOTRANSFERASE,ALT 74.0 U/L (14-59); ASPARTATE AMNIOTRANSFERASE,AST 24.0 U/L (15-37); BILIRUBIN TOTAL 0.2 mg/dL (0.2-1.0); BLOOD UREA NITROGEN,BUN 8.0 mg/dL (7-18); CARBON DIOXIDE,CO2 29.0 mEq/L (21-32); CHLORIDE,CL 106.0 mEq/L (98-107); CREATININE 1.0 mg/dL (0.55-1.02); EST CRCL DRUG DOSING (CG) 51.58 mL/min; ESTIMATED GFR 59.0 mL/min (>60); GLUCOSE RANDOM 124.0 mg/dL (70-99); POTASSIUM,K 4.3 mEq/L (3.5-5.1); PROTEIN TOTAL,TP 4.8 g/dl (6.4-8.2); SODIUM,NA 140.0 mEq/L (136-145)
[2025-06-18] MEDS: Magnesium Sulfate 2 GM/50 mL 2 GM in Premix Bag 1 BAG IV ONE (14:49)
== END 2025-06-19 13:15 | DRG 871 ==
LOC: JD.ED 12:02 → JD.MS 16:40 → JD.ICU 18:06 → JD.MS 06-06 22:49
PROVIDERS: ADMIT Family Medicine; ATTEND Family Medicine
PROC: 30233N1 Transfusion of Nonautologous Red Blood Cells into Peripheral Vein, Percutaneous Approach (ICD-10-PCS; principal; 2025-06-03)
PROC: 3E03329 Introduction of Other Anti-infective into Peripheral Vein, Percutaneous Approach (ICD-10-PCS; 2025-06-03)
PROC: 3E033XZ Introduction of Vasopressor into Peripheral Vein, Percutaneous Approach (ICD-10-PCS; 2025-06-03)
DX: A41.51 Sepsis due to Escherichia coli [E. coli] (principal); E03.5 Myxedema coma; R91.1 Solitary pulmonary nodule; E83.52 Hypercalcemia; R79.89 Other specified abnormal findings of blood chemistry; R41.0 Disorientation, unspecified; G92.8 Other toxic encephalopathy; R65.21 Severe sepsis with septic shock; R57.1 Hypovolemic shock; J44.9 Chronic obstructive pulmonary disease, unspecified; J18.9 Pneumonia, unspecified organism; J69.0 Pneumonitis due to inhalation of food and vomit; J44.0 Chronic obstructive pulmonary disease with (acute) lower respiratory infection; N39.0 Urinary tract infection, site not specified; N17.9 Acute kidney failure, unspecified; E87.20 Acidosis, unspecified; F03.B18 Unspecified dementia, moderate, with other behavioral disturbance; F03.B4 Unspecified dementia, moderate, with anxiety; F03.B3 Unspecified dementia, moderate, with mood disturbance; E46 Unspecified protein-calorie malnutrition; E27.2 Addisonian crisis; E27.40 Unspecified adrenocortical insufficiency; Z66 Do not resuscitate; H54.7 Unspecified visual loss; I25.10 Atherosclerotic heart disease of native coronary artery without angina pectoris; E78.00 Pure hypercholesterolemia, unspecified; G47.30 Sleep apnea, unspecified; M19.90 Unspecified osteoarthritis, unspecified site; G89.29 Other chronic pain; M54.9 Dorsalgia, unspecified; G43.909 Migraine, unspecified, not intractable, without status migrainosus; E11.9 Type 2 diabetes mellitus without complications; E03.9 Hypothyroidism, unspecified; R62.7 Adult failure to thrive; R53.81 Other malaise; E86.0 Dehydration; N28.9 Disorder of kidney and ureter, unspecified; E83.42 Hypomagnesemia; E87.6 Hypokalemia; E87.8 Other disorders of electrolyte and fluid balance, not elsewhere classified; E53.8 Deficiency of other specified B group vitamins; D50.9 Iron deficiency anemia, unspecified; I11.0 Hypertensive heart disease with heart failure; D70.9 Neutropenia, unspecified; I50.9 Heart failure, unspecified; Z68.20 Body mass index [BMI] 20.0-20.9, adult; Z88.1 Allergy status to other antibiotic agents; Z91.040 Latex allergy status; Z88.8 Allergy status to other drugs, medicaments and biological substances; Z79.82 Long term (current) use of aspirin; Z79.899 Other long term (current) drug therapy; Z79.890 Hormone replacement therapy; Z95.5 Presence of coronary angioplasty implant and graft; Z95.1 Presence of aortocoronary bypass graft; Z90.89 Acquired absence of other organs; Z90.710 Acquired absence of both cervix and uterus; Z90.49 Acquired absence of other specified parts of digestive tract
CPT/HCPCS: 36415; 70450; 71250; 72125; 74176; 80053; 81001; 82140; 82533; 82550; 83605; 83690; 83735; 83880; 84439; 84443; 84484; 85025; 85610; 86140; 87040 ×2; 87086; 87088; 87186; 87428; 93005; 96361; 96375; 99285; C1758; J0696; J7030; 36430; 71046; 71046-26; 80048; 80061; 82010; 82247; 82248; 82272; 82607; 82746; 82803; 82947; 83036; 83540; 83615; 84100; 84466; 85007; 85014; 85018; 85027; 85045; 85730; 86850; 86900; 86901; 86922; 92523-GN; 93010; 96365; 96366; 97110-GP; 97112-GP; 97116-GP; 97161-GP; 97530-GP; 99223; 99231; 99232; 99233; 99239; A9270-GY; J0650; J1271; J1644; J1650; J1720; J3475; J7050; P9016; U0002

== ENCOUNTER 2025-08-08 13:00 | Emergency (ER) | payer MEDICARE, MEDICAID ==
[2025-08-08] MEDS ORDERED: Sodium Chloride 0.9% 10 ML Syringe FLUSH PRN (13:15)
[2025-08-08 13:42] LABS: BASOPHILS ABSOLUTE AUTO 0.0 K/mm3 (0.0-0.2); BASOPHILS PERCENT AUTO 0.6 % (0.0-1.0); EOSINOPHILS ABSOLUTE AUTO 0.2 K/mm3 (0.0-0.4); EOSINOPHILS PERCENT AUTO 2.7 % (0.0-6.0); IMMATURE GRAN ABSOLUTE AUTO 0.02 K/mm3 (0.00-0.05); IMMATURE GRAN PERCENT AUTO 0.3 % (0.0-0.4); LYMPHOCYTES ABSOLUTE AUTO 1.3 K/mm3 (1.0-4.8); LYMPHOCYTES PERCENT AUTO 18.0 % (24.0-44.0); MEAN PLATELET VOLUME 9.4 fl (9.4-12.3); MONOCYTES ABSOLUTE AUTO 0.6 K/mm3 (0.0-0.8); MONOCYTES PERCENT AUTO 8.3 % (0.0-8.0); NEUTROPHILS ABSOLUTE AUTO 4.9 K/mm3 (1.8-7.7); NEUTROPHILS PERCENT AUTO 70.1 % (41.0-71.0); NRBC ABSOLUTE 0.00 (0.00-0.02); NRBC PERCENT 0.0 % (0.0-0.2); PLATELET COUNT,PLT 206 K/mm3 (150-400); RED BLOOD CELL COUNT 3.56 M/mm3 (4.10-5.30); WHITE BLOOD CELL COUNT,WBC 7.00 K/mm3 (3.9-11.3)
[2025-08-08 14:06] LABS: A/G RATIO 1.0 (1-2); ALANINE AMINOTRANSFERASE,ALT 23.0 U/L (14-59); ASPARTATE AMNIOTRANSFERASE,AST 12.0 U/L (15-37); BILIRUBIN TOTAL 0.3 mg/dL (0.2-1.0); BLOOD UREA NITROGEN,BUN 18.0 mg/dL (7-18); CARBON DIOXIDE,CO2 30.0 mEq/L (21-32); CHLORIDE,CL 102.0 mEq/L (98-107); CREATININE 1.2 mg/dL (0.55-1.02); EST CRCL DRUG DOSING (CG) 42.7 mL/min; ESTIMATED GFR 48.0 mL/min (>60); GLUCOSE RANDOM 128.0 mg/dL (70-99); POTASSIUM,K 4.3 mEq/L (3.5-5.1); PROTEIN TOTAL,TP 7.0 g/dl (6.4-8.2); SODIUM,NA 140.0 mEq/L (136-145); TROPONIN I HIGH SENSITIVITY 4.0 pg/mL (<=51)
[2025-08-08 14:14] LABS: APPEARANCE,URINE CLEAR (Clear); GLUCOSE,URINE NEGATIVE (Negative); OCCULT BLOOD,URINE NEGATIVE (Negative)
[2025-08-08 14:53] LABS: SQUAMOUS EPITHELIAL CELLS,UR 0-5 /hpf (0-5)
[2025-08-08] MEDS: Nitrofurantoin Monohydrate/Macrocrystalline 100 MG Cap PO ONE (16:09)
[2025-08-08] MEDS: Acetaminophen/oxyCODONE 325-5 MG Tab PO ONE (16:09)
== END 2025-08-08 17:15 | disposition home or self-care (01) ==
LOC: JD.ED 13:00
DX: R51.9 Headache, unspecified (principal); N39.0 Urinary tract infection, site not specified; I10 Essential (primary) hypertension; E78.00 Pure hypercholesterolemia, unspecified; I25.10 Atherosclerotic heart disease of native coronary artery without angina pectoris; E11.9 Type 2 diabetes mellitus without complications; E03.9 Hypothyroidism, unspecified; Z88.8 Allergy status to other drugs, medicaments and biological substances; Z91.040 Latex allergy status; Z79.84 Long term (current) use of oral hypoglycemic drugs; Z79.890 Hormone replacement therapy; Z79.899 Other long term (current) drug therapy; Z90.49 Acquired absence of other specified parts of digestive tract; Z90.710 Acquired absence of both cervix and uterus
CPT/HCPCS: 36415; 71045; 80053; 81001; 83735; 84484; 85025; 87086; 93005; 99285; A9270; 93010; 99284